=== PATIENT | male | born 1945 | race Caucasian/White ===

== ENCOUNTER → 2017-01-09 | Outpatient (CLI) | payer BC ==
[~2017-01-09] MED LIST: ASPEC325 PO; BISA10SU13 RE
--- NOTE | 2017-01-09 10:58 | DIAGNOSTIC IMAGING REPORT ---
CHEST 2 VIEWS ROUTINE CLINICAL HISTORY: EXERTIONAL DYSPNEA COMPARISON STUDY: 09/17/2015 FINDINGS: The cardiac and mediastinal contours are normal. There is no evidence of focal pulmonary consolidation. There is no evidence of failure. No pleural effusions are visualized.[ There is an old left clavicular fracture. There are old left-sided rib fractures. IMPRESSION: No active disease in the chest. Electronically signed by: Bulmaro Iqbal M.D. 01/09/2017 10:57 AM Dictated Date/Time: 01/09/2017 10:56 AM
[2017-01-09 14:01] LABS: ALT/SGPT 39 U/L (12-78); BLOOD UREA NITROGEN 12 mg/dl (7-18); BUN/CREATININE RATIO 10.6 (10-20); CALCIUM 9.1 mg/dl (8.5-10.1); CARBON DIOXIDE 27 mmol/L (21-32); CHLORIDE 102 mmol/L (98-107); CHOLESTEROL 189 mg/dl (0-200); GLUCOSE 125 mg/dl (70-99); POTASSIUM 3.9 mmol/L (3.5-5.1); SODIUM 139 mmol/L (136-145)
[2017-01-09 14:05] LABS: ALKALINE PHOSPHATASE 75 U/L (45-117); AST/SGOT 30 U/L (15-37); CHOLESTEROL/HDL RATIO 3.5; HDL CHOLESTEROL 54 mg/dl; LDL CHOLESTEROL CALCULATED 105 mg/dl; TRIGLYCERIDES 152 mg/dl (0-150); VERY LOW DENSITY LIPOPROT CALC 30 mg/dl
[2017-01-09 14:11] LABS: ESTIMATED AVERAGE GLUCOSE 146 mg/dl; HA1C FLAG Normal (Normal)
--- NOTE | 2017-01-14 12:31 | CODING QUERY MEDICAL NECESSITY ---
SUPPORTING DIAGNOSIS NEEDED A supporting diagnosis is required for the test/procedure performed on this patient in order for us to be reimbursed by the patient's insurance. Please provide a supporting diagnosis for the following test/procedure listed below next to the test name along with your signature. *If there is no additional diagnosis for this patient that would support the following test/procedure please document that below next to the test/procedure. Test(s)/Procedure(s) that require a supporting diagnosis: * VITAMIN D 25-HYDROXY DIAGNOSIS: * DOS: 01/09/17 Provider Signature: Date: Thank you Estefani Avendaño Health Information Management Once completed, please kindly fax back to [phone] For questions please call [phone]
== END | disposition home or self-care (01) ==
LOC: C.RADBC 10:24
PROVIDERS: ATTEND Internal Medicine Geriatric Medicine
DX: R35.1 Nocturia (principal); K76.0 Fatty (change of) liver, not elsewhere classified; S82.209A Unspecified fracture of shaft of unspecified tibia, initial encounter for closed fracture; X58.XXXA Exposure to other specified factors, initial encounter; R73.9 Hyperglycemia, unspecified; R06.09 Other forms of dyspnea; E55.9 Vitamin D deficiency, unspecified

== ENCOUNTER → 2017-04-08 | Outpatient (CLI) | payer BC ==
[2017-04-08 15:00] LABS: ESTIMATED AVERAGE GLUCOSE 137 mg/dl; HA1C FLAG Normal (Normal)
== END | disposition home or self-care (01) ==
LOC: C.LABBC 10:14
PROVIDERS: ATTEND Physician Assistant Medical
DX: R73.9 Hyperglycemia, unspecified (principal); E55.9 Vitamin D deficiency, unspecified

== ENCOUNTER → 2017-12-17 | Outpatient (CLI) | payer BC ==
[2017-12-17 13:35] LABS: ESTIMATED AVERAGE GLUCOSE 154 mg/dl; HA1C FLAG Normal (Normal)
== END | disposition home or self-care (01) ==
LOC: C.LABBC 10:34
DX: R73.9 Hyperglycemia, unspecified (principal)

== ENCOUNTER 2023-09-28 23:38 | Inpatient (IN) ==
[2023-09-29] MEDS ORDERED: dilTIAZem HCl 5 MG/ML 5 ML VIAL IV STA (00:01)
[2023-09-29] MEDS ORDERED: STAT IV Infusion **Titration per Protocol STA (00:01)
[2023-09-29 00:09] LABS: iSTAT Creatinine 1.4 mg/dl (0.6-1.3); iSTAT Hemoglobin 17.7 g/dl (14.0-18.0); iSTAT Ionized Calcium 1.1 mmol/l (1.12-1.32); iSTAT Potassium 4.1 mmol/L (3.3-5.0)
[2023-09-29] MEDS ORDERED: dilTIAZem HCL 125 MG in DEXTROSE 5% 100 ML IV SCH (00:15)
--- NOTE | 2023-09-29 00:15 | Emergency Department Note ---
Impression & Plan Generalized weakness, Atrial fibrillation with rapid ventricular response, Dehydration, Fall, KELLY (acute kidney injury) ED Provider Note ED Provider Note NAME: JOSSIE BRASWELL AGE:78 SEX: Male : 1945 ARRIVES VIA: EMS INFORMANT: Patient ED PROVIDER(s): Margarita Hubbard DO CHIEF COMPLAINT: Generalized weakness HPI: This is a 78-year-old male presents emerged department via EMS after they were initially called to help the patient up off the floor as he fell trying to get up off the toilet. Patient states he has been very weak with a bad cold for the last 2 to 3 days. He states he did just recently get his RSV vaccination. He states he has had a decreased appetite and did not have anything to eat earlier today but was trying to drink water. BLS initially helped the patient up and upon check of vitals realized he was tachycardic and contacted a differential repairer who also came and evaluated him. 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 Patient denies any prior history of heart problems or A-fib. No other recent change in diet, medications, or activity. No prior cardiac evaluation. Patient denies any head trauma or LOC in the fall. He states he has no concern for injury and no pain since the fall. He states no chest pain, shortness of breath, palpitations, or leg swelling. Patient states he has felt slightly lightheaded over the last several days which she attributed to being ill. He states he did take Robitussin however last dose was yesterday. EMS started IV fluids prior to arrival, no other treatment started. PAST MEDICAL HISTORY:See Below PAST SURGICAL HISTORY:See Below FAMILY HISTORY:See Below SOCIAL HISTORY:See Below HOME MEDICATIONS:See Below ALLERGIES:See Below VITALS:See Below PHYSICAL EXAMINATION: GENERAL: alert, unwell appearing, well nourished, no distress, non-toxic EYE EXAM: normal conjunctiva, PERRL and EOM's grossly intact OROPHARYNX: no exudate, no erythema, lips, buccal mucosa, and tongue normal and mucous membranes are moist NECK: supple, no nuchal rigidity, no adenopathy, non-tender LUNGS: Clear to auscultation. Normal chest wall mechanics, no w/r/r HEART: no murmurs, S1 normal and S2 normal ABDOMEN: abdomen soft, non-tender, normo-active bowel sounds, no masses, no rebound or guarding. Diastasis recti noted. BACK: Back is symmetrical on inspection and there is no deformity, no midline tenderness, no CVA tenderness. SKIN: no rashes, petechiae, orbruising UPPER EXTREMITIES: upper extremities are grossly normal. FROM, nml pulses b/l. LOWER EXTREMITIES: No pitting edema. FROM, nml pulses b/l. NEURO EXAM: Normal sensorium, cranial nerves II-XII grossly intact, normal speech, no facial droop,nogross weakness of arms, no gross weakness of legs. Gross sensation intact. No ataxia. Vital Signs: reviewed and remarkable Differential Diagnosis: Dehydration, KELLY, electrolyte abnormality, acute viral syndrome, gastroenteritis, dysrhythmia, closed head injury, ICH, as well as others were considered MEDICAL DECISION MAKING: This is a 78-year-old male presents emergency department via EMS after having weakness and a fall and was found to be in rapid A-fib. Patient afebrile and blood pressure stable on arrival. Labs drawn and sent, IV established, EKG and chest x-ray performed bedside interpreted by me and patient monitored on telemetry. Patient started on IV fluids by EMS initially and then transition to maintenance fluids here due to reported decreased oral intake after feeling ill the last few days and likely contributing dehydration. He was noted to have mild KELLY. He was started on Cardizem bolus and drip and after discussion at bedside low-dose heparin additionally, no contraindications were found in discussion with the patient. Patient's heart rate did slowly begin to improve. Lyme did reveal positive IgM and IV Rocephin was added. Case discussed with hospitalist for additional evaluation and management. Consultation(s): 0125: Discussed with Dr. Yanes, [facility] hospitalist team, for additional evaluation and management. ER Treatment Provided: See below Diagnostics Interpreted By Me: -ECG: Atrial fibrillation at 177, normal QRS and QTc, normal axis, ST depression noted V2 through V6, likely rate related -Cardiac Monitoring: An order was placed for continuous cardiac monitoring. The monitor shows a rate of 141 with a.fib rhythm. -Laboratory studies: As stated above and show below. -Imaging studies: X-ray Chest: A single view study of the chest was reviewed and was negative for cardiomegaly, focal infiltrate, effusion, overt pulmonary edema, or wide mediastinum. Mildly increased interstitial markings bilaterally Triage Nursing Note Reviewed Prior/Outside Records Reviewed Critical Care: Critical care of 43 min performed to assess and manage high likelihood of life- threatening dysrhythmia, involving labs and imaging performed with assessment to evaluate dysrhythmia diagnosis with frequent reassessment. This time includes bedside time, treatment discussions with patient/family/consultants, documentation time and excludes procedure time. Past Med/Surg History Medical History BPH with obstruction/lower urinary tract symptoms Diastasis recti Hearing deficit BL ALVAREZ Hiatal hernia History of colon polyps History of perforation of tympanic membrane Obesity Rosacea Sensorineural hearing loss (SNHL) of both ears Umbilical hernia Surgical History History of ankle surgery X 3 BL History of cataract surgery History of colonoscopy W/ POLYPECTOMY 2019 History of ear surgery History of surgical removal of ganglion cyst Family History Uncle Family hx of colon cancer Hypertension Colorectal cancer Mother Hearing loss Allergies Brother No problems noted. Uncle Heart disease Myocardial infarction H/O hemicolectomy Grandfather (Maternal) Stroke Other Cancer No family history of adverse response to anesthesia No family history of bleeding disorder Denies family history of Ovarian cancer Prostate cancer Diabetes Breast cancer Lung cancer Social History Smoking Status: Former smoker Tobacco Type: Cigarettes Age Started Using Tobacco: 18; Age Quit Using Tobacco: 31; packs per day: 1; Second Hand Exposure: No; Do You Dip or Chew Tobacco: No; Hx Alcohol Use: Yes Alcohol type: beer and wine Alcohol Intake Frequency: Monthly or Less Alcohol Intake Frequency Comment: very rare Hx Substance Use: Yes Non-Prescribed Medications: Marijuana Preferred Language: Gabonese Communication Ability: Effective Visual Impairment: Limited Hearing Ability: Use of Hearing Aid 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: No marital status: Current Living Situation: Spouse current occupational status: retired current occupation: [employer] How many Children do You have: 2 Feels Safe at Home: Yes Childhood Exposure to Second-Hand Smoke: Yes Diet: diabetic caffeine: Yes (coffee ) during the past year weight has: remained stable Dental Care, Regularly: Yes Physical Activity Frequency: Does not Exercise Seatbelt Use: always Sunscreen Use: No Assistive Devices: Glasses and Hearing Aid - Bilateral Allergies Allergies Allergy/AdvReac Type Severity Reaction Status Date / Time Nitrate Analogues Allergy Intermediate EPISTAXIS Verified 09/29/23 01:13 atorvastatin AdvReac Mild Sore tongue Verified 09/29/23 00:34 finasteride AdvReac Mild groin pain Verified 09/29/23 00:34 pravastatin AdvReac Mild Sore tongue Verified 09/29/23 00:34 tamsulosin AdvReac Mild Fatigued Verified 09/29/23 00:34 CHLOROCARBON Allergy Intermediate EYES SWELL Uncoded 09/29/23 00:34 IF INHALED Home Meds Home Medications Medication Instructions Recorded Confirmed ascorbic acid (vitamin C) 500 mg 250 mg PO BID 07/11/19 09/29/23 tablet (Vitamin C) cholecalciferol (vitamin D3) 25 1,000 unit PO DAILY 02/20/22 09/29/23 mcg (1,000 unit) tablet (Vitamin D3) aspirin 325 mg tablet 162.5 mg PO DAILY 09/01/23 09/29/23 vitamin B complex (B 1 tab PO DAILY 09/01/23 09/29/23 Complex-Vitamin B12 tablet) Previous Rx's Medication Instructions Recorded metformin 500 mg tablet 500 mg PO BID #180 tabs 01/22/23 rosuvastatin 5 mg tablet 5 mg PO HS #90 tabs 02/26/23 Results & Data (ED) Vital Signs Vital Signs - 24 hr 09/28/23 23:52 09/28/23 23:59 09/29/23 00:05 Temperature 37.5 C Temperature Source Oral Pulse Rate 175 H Pulse Rate from SpO2 Sensor Respiratory Rate 22 Respiratory Effort / Characteristics Short of Breath Respiratory Depth Normal Blood Pressure 134/108 H Blood Pressure Mean 116 Blood Pressure Position Lying Pulse Oximetry 97 96 Oxygen Delivery Method Nasal Cannula Nasal Cannula Room Air Oxygen Flow Rate 2 2 2 Sepsis Recent Fever Within 48 Hours Yes Sepsis New/Unexplained Change in Mental Status N/A Sepsis Action Taken by Nursing Physician Notified 09/29/23 00:15 09/29/23 00:30 09/29/23 00:40 Temperature Temperature Source Pulse Rate 163 H 142 H 159 H Pulse Rate from SpO2 Sensor 126 H 115 H 128 H Respiratory Rate 36 H 21 31 H Respiratory Effort / Characteristics Respiratory Depth Blood Pressure 103/74 112/85 Blood Pressure Mean 83 94 Blood Pressure Position Pulse Oximetry 95 96 95 Oxygen Delivery Method Nasal Cannula Nasal Cannula Nasal Cannula Oxygen Flow Rate 2 2 2 Sepsis Recent Fever Within 48 Hours Sepsis New/Unexplained Change in Mental Status Sepsis Action Taken by Nursing 09/29/23 00:45 09/28/23 23:51 Temperature Temperature Source Pulse Rate 122 H 162 H Pulse Rate from SpO2 Sensor 135 H Respiratory Rate 34 H Respiratory Effort / Characteristics Respiratory Depth Blood Pressure 139/80 Blood Pressure Mean 99 Blood Pressure Position Pulse Oximetry 95 Oxygen Delivery Method Nasal Cannula Oxygen Flow Rate 2 Sepsis Recent Fever Within 48 Hours Sepsis New/Unexplained Change in Mental Status Sepsis Action Taken by Nursing Laboratory Data 09/28/23 23:50 09/28/23 23:50 Lab Results 09/28/23 09/28/23 09/28/23 Range/Units 23:50 23:50 23:50 WBC 12.40 H (4.8-10.8) K/ul RBC 5.37 (4.70-6.10) M/uL Hgb 16.5 (14.0-18.0) g/dl POC Hgb (14.0-18.0) g/dl Hct 48.7 (42.0-52.0) % POC Hct (42-52) % MCV 90.7 (80.0-100.0) fL MCH 30.7 (25.0-34.0) pg MCHC 33.9 (32.0-36.0) g/dL RDW Std Deviation 41.8 (36.4-46.3) fL RDW Coeff of Wil 12.7 (11.5-14.5) % Plt Count 188 (130-400) K/uL MPV 8.8 L (9.4-12.4) fL Immature Gran % (Auto) 0.6 % Neut % (Auto) 82.1 % Lymph % (Auto) 7.8 % [place] % (Auto) 9.0 % Eos % (Auto) 0.3 % Baso % (Auto) 0.2 % Neut # (Auto) 10.17 H (1.40-6.50) K/uL Lymph # (Auto) 0.97 L (1.20-3.40) K/uL [place] # (Auto) 1.11 H (0.11-0.59) K/uL Eos # (Auto) 0.04 (0.00-0.50) K/uL Baso # (Auto) 0.03 (0.00-0.20) K/uL Immature Gran # (Auto) 0.08 (0.01-0.20) K/uL PT (9.0-12.0) Seconds INR (0.9-1.1) APTT (21.0-31.0) Seconds PTT Ratio POC Sodium (135-144) mmol/L Sodium 135 L (136-145) mmol/L POC Potassium (3.3-5.0) mmol/L Potassium 3.9 (3.5-5.1) mmol/L POC Chloride (101-112) mmol/L Chloride 100 (98-107) mmol/L Carbon Dioxide 25 (21-32) mmol/L POC Total CO2 (24-31) mmol/L Anion Gap 10 (3-11) POC Anion Gap (16-25) mmol/L POC BUN (7-18) mg/dl BUN 15 (6-23) mg/dl Creatinine 1.46 H (0.6-1.4) mg/dl POC Creatinine (0.6-1.3) mg/dl Est Cr Clr Drug Dosing 51.8 ml/min Est GFR ( Amer) 53.4 ml/min Est GFR (Non-Af Amer) 46.1 ml/min BUN/Creatinine Ratio 10.3 (10-20) Glucose 156 H (70-99(Fasting)) mg/dl POC Glucose (other) (70-99) mg/dl Calcium 9.2 (8.6-10.3) mg/dl POC Ioniz Calcium Brie (1.12-1.32) mmol/l Magnesium 2.1 (1.7-2.4) mg/dl Total Bilirubin 0.8 (0.2-1.0) mg/dl AST 54 H (13-39) U/L ALT 47 (7-52) U/L Alkaline Phosphatase 69 (34-104) U/L Troponin I High Sens 17.7 (0-20) pg/ml Total Protein 8.3 (6.0-8.3) gm/dl Albumin 4.5 (3.4-5.0) gm/dl Globulin 3.8 (2.5-4.0) gm/dl Albumin/Globulin Ratio 1.2 (0.9-2) Lipase 25 (11-82) U/L TSH 1.766 (0.300-4.500) uIu/ml Lyme Disease IgG Ab Negative (Negative) Lyme Disease IgM Ab Positive A (Negative) 09/28/23 09/28/23 Range/Units 23:50 23:57 WBC (4.8-10.8) K/ul RBC (4.70-6.10) M/uL Hgb (14.0-18.0) g/dl POC Hgb 17.7 (14.0-18.0) g/dl Hct (42.0-52.0) % POC Hct 52 (42-52) % MCV (80.0-100.0) fL MCH (25.0-34.0) pg MCHC (32.0-36.0) g/dL RDW Std Deviation (36.4-46.3) fL RDW Coeff of Wil (11.5-14.5) % Plt Count (130-400) K/uL MPV (9.4-12.4) fL Immature Gran % (Auto) % Neut % (Auto) % Lymph % (Auto) % [place] % (Auto) % Eos % (Auto) % Baso % (Auto) % Neut # (Auto) (1.40-6.50) K/uL Lymph # (Auto) (1.20-3.40) K/uL [place] # (Auto) (0.11-0.59) K/uL Eos # (Auto) (0.00-0.50) K/uL Baso # (Auto) (0.00-0.20) K/uL Immature Gran # (Auto) (0.01-0.20) K/uL PT 11.3 (9.0-12.0) Seconds INR 1.0 (0.9-1.1) APTT 25.9 (21.0-31.0) Seconds PTT Ratio 0.9 POC Sodium 138 (135-144) mmol/L Sodium (136-145) mmol/L POC Potassium 4.1 (3.3-5.0) mmol/L Potassium (3.5-5.1) mmol/L POC Chloride 100 L (101-112) mmol/L Chloride (98-107) mmol/L Carbon Dioxide (21-32) mmol/L POC Total CO2 28 (24-31) mmol/L Anion Gap (3-11) POC Anion Gap 15.0 L (16-25) mmol/L POC BUN 18 (7-18) mg/dl BUN (6-23) mg/dl Creatinine (0.6-1.4) mg/dl POC Creatinine 1.4 H (0.6-1.3) mg/dl Est Cr Clr Drug Dosing ml/min Est GFR ( Amer) ml/min Est GFR (Non-Af Amer) ml/min BUN/Creatinine Ratio (10-20) Glucose (70-99(Fasting)) mg/dl POC Glucose (other) 157 H (70-99) mg/dl Calcium (8.6-10.3) mg/dl POC Ioniz Calcium Brie 1.10 L (1.12-1.32) mmol/l Magnesium (1.7-2.4) mg/dl Total Bilirubin (0.2-1.0) mg/dl AST (13-39) U/L ALT (7-52) U/L Alkaline Phosphatase (34-104) U/L Troponin I High Sens (0-20) pg/ml Total Protein (6.0-8.3) gm/dl Albumin (3.4-5.0) gm/dl Globulin (2.5-4.0) gm/dl Albumin/Globulin Ratio (0.9-2) Lipase (11-82) U/L TSH (0.300-4.500) uIu/ml Lyme Disease IgG Ab (Negative) Lyme Disease IgM Ab (Negative) Administered Medications Sodium Chloride (Nss) 1,000 mls @ 125 mls/hr IV .Q8H NOEMI Stop: 10/28/23 23:44 Last Admin: 09/29/23 00:16 Dose: 125 mls/hr Documented By: Diltiazem HCl 125 mg/ Dextrose 125 mls @ 5 mls/hr IV .Q24H NOEMI; Protocol Stop: 10/29/23 00:14 Last Titration: 09/29/23 01:22 Dose: 10 mg/hr, 10 mls/hr Documented By: Co-signed By: ELLEN Admin: 09/29/23 00:24 Dose: 5 mg/hr, 5 mls/hr Documented By: Co-signed By: JOHANNA Ceftriaxone Sodium (Rocephin) 2,000 mg in 50 mls @ 100 mls/hr IV NOW STA Stop: 09/29/23 01:44 Last Admin: 09/29/23 01:22 Dose: 100 mls/hr Documented By: Sodium Chloride (Nss) 500 mls @ 999 mls/hr IV .Q31M ONE Stop: 09/29/23 01:47 Last Admin: 09/29/23 01:26 Dose: 999 mls/hr Documented By: Discontinued Medications Diltiazem HCl (Diltiazem Hcl 5 Mg/Ml 5 Ml Vial) 15 mg IV NOW STA Stop: 09/29/23 00:02 Last Admin: 09/29/23 00:13 Dose: 15 mg Documented By: Co-signed By: JOHANNA Miscellaneous (Stat Iv Infusion Titration Per Protocol) 1 each N/A NOW STA Stop: 09/29/23 00:02 Last Admin: 09/29/23 00:26 Dose: 1 each Documented By: Discharge Plan Visit Data Chief Complaint: Tachycardia Stated Complaint: FALL ED Provider: Margarita Hubbard Discharge Problem: Generalized weakness, Atrial fibrillation with rapid ventricular response, Dehydration, Fall, KELLY (acute kidney injury) Forms Stand Alone Forms: [facility] Prescriptions Prescriptions: No Action metformin 500 mg tablet 500 mg PO BID Qty: 180 3RF vitamin B complex [B Complex-Vitamin B12] Tablet 1 tab PO DAILY aspirin 325 mg tablet 162.5 mg PO DAILY rosuvastatin 5 mg tablet 5 mg PO HS Qty: 90 3RF ascorbic acid (vitamin C) [Vitamin C] 500 mg Tablet 250 mg PO BID cholecalciferol (vitamin D3) [Vitamin D3] 25 mcg (1,000 unit) tablet 1,000 unit PO DAILY Referrals Referrals: Jose Hernandez DO [Primary Care Provider] -
[2023-09-29] MEDS: SODIUM CHLORIDE 0.9% 1,000 ML IV SCH ×3 (00:16→20:56)
[2023-09-29 00:25] LABS: Basophils # (auto) 0.03 K/uL (0.00-0.20); Basophils % (auto) 0.2 %; Eosinophils # (auto) 0.04 K/uL (0.00-0.50); Eosinophils % (auto) 0.3 %; Hematocrit (blood only) 48.7 % (42.0-52.0); Hemoglobin 16.5 g/dl (14.0-18.0); Immature Granulocytes # (auto) 0.08 K/uL (0.01-0.20); Immature Granulocytes % (auto) 0.6 %; Lymphocytes # (auto) 0.97 K/uL (1.20-3.40); Lymphocytes % (auto) 7.8 %; Mean Corpuscular Hemoglobin 30.7 pg (25.0-34.0); Mean Corpuscular Hgb Conc 33.9 g/dL (32.0-36.0); Mean Corpuscular Volume 90.7 fL (80.0-100.0); Mean Platelet Volume 8.8 fL (9.4-12.4); Monocytes # (auto) 1.11 K/uL (0.11-0.59); Neutrophils # (auto) 10.17 K/uL (1.40-6.50); Neutrophils % (auto) 82.1 %; Platelet Count 188 K/uL (130-400); RDW Coefficient of Variation 12.7 % (11.5-14.5); RDW Standard Deviation 41.8 fL (36.4-46.3); Red Blood Count 5.37 M/uL (4.70-6.10)
[2023-09-29 00:35] LABS: Albumin Globulin Ratio 1.2 (0.9-2); Albumin Level 4.5 gm/dl (3.4-5.0); BUN Creatinine Ratio 10.3 (10-20); Bilirubin,Total 0.8 mg/dl (0.2-1.0); Calcium 9.2 mg/dl (8.6-10.3); Creatinine Clr Calc Pharmacy 51.8 ml/min; Est GFR (African American) 53.4 ml/min; Est GFR (Non-African American) 46.1 ml/min; Globulin 3.8 gm/dl (2.5-4.0); Magnesium 2.1 mg/dl (1.7-2.4); Potassium 3.9 mmol/L (3.5-5.1); Total Protein 8.3 gm/dl (6.0-8.3)
[2023-09-29 00:42] LABS: Troponin I High Sensitivity 17.7 pg/ml (0-20)
[2023-09-29] MEDS ORDERED: Heparin IV Adult Wt-Based Low-Dose *NO* Bolus Protocol IV STA (00:42)
[2023-09-29 00:51] LABS: Thyroid Stimulating Hormone 1.766 uIu/ml (0.300-4.500)
[2023-09-29] MEDS ORDERED: HEPARIN SODIUM/DEXTROSE 25,000 UNITS/500 ML BAG IV SCH (01:00)
[2023-09-29 01:01] LABS: Lyme Ab IgG w/WB Rflx Negative (Negative)
[2023-09-29 01:14] LABS: Lyme Ab IgM w/WB Rflx Positive (Negative)
[2023-09-29] MEDS ORDERED: cefTRIAXone SODIUM 2,000 MG/50 ML BAG IV STA (01:15)
[2023-09-29] MEDS ORDERED: SODIUM CHLORIDE 0.9% 500 ML IV ONE (01:17)
[2023-09-29 01:28] LABS: Partial Thromboplastin Ratio 0.9; Partial Thromboplastin Time 25.9 Seconds (21.0-31.0); Prothrombin Time 11.3 Seconds (9.0-12.0)
[2023-09-29 01:51] LABS: Adenovirus PCR Not Detected (NotDetected); Bordetella parapertussis PCR Not Detected (NotDetected); Bordetella pertussis PCR Not Detected (NotDetected); Chlamydia pneumoniae PCR Not Detected (NotDetected); Coronavirus 229E PCR Not Detected (NotDetected); Coronavirus HKU1 PCR Not Detected (NotDetected); Coronavirus NL63 PCR Not Detected (NotDetected); Coronavirus OC43PCR Not Detected (NotDetected); Human Metapneumovirus PCR Not Detected (NotDetected); Influenza A PCR Not Detected (NotDetected); Influenza B PCR Not Detected (NotDetected); Mycoplasma pneumoniae PCR Not Detected (NotDetected); Parainfluenza Virus 1 PCR Not Detected (NotDetected); Parainfluenza Virus 2 PCR Not Detected (NotDetected); Parainfluenza Virus 3 PCR Not Detected (NotDetected); Parainfluenza Virus 4 PCR Not Detected (NotDetected); Respiratory Syncytial VirusPCR Not Detected (NotDetected); Rhinovirus/Enterovirus PCR Not Detected (NotDetected)
[2023-09-29 01:58] LABS: Coronavirus CoV-2 (COVID19)PCR DETECTED (NotDetected)
[2023-09-29] MEDS ORDERED: POTASSIUM CHLORIDE CRTAB 20 MEQ TABCR PO ONE (02:00)
[2023-09-29] MEDS ORDERED: ENOXAPARIN 100 MG/1ML SYR SQ ONE (02:00)
[2023-09-29] MEDS: DOXYCYCLINE HYCLATE 100 MG in DEXTROSE 5% MINI-B 100 ML IV SCH ×2 (02:02→14:07)
[2023-09-29 02:48] LABS: Appearance Urine Clear (Clear); Bacteria Urine Automated Negative (Negative); Bilirubin Urine Negative (Negative); Blood Urine 2+ (Negative); Color Urine Dark Yellow; Glucose Urine UA Negative (Negative); Ketones Urine 1+ (Negative); Leukocyte Esterase Urine Negative (Negative); Nitrite Urine Negative (Negative); Protein Urine 1+ (Negative); Specific Gravity Urine 1.021 (1.000-1.030); Urobilinogen Urine Negative (Negative)
[2023-09-29] MEDS ORDERED: DEXTROSE 50% 50 ML SYRINGE IV PRN (03:21)
[2023-09-29] MEDS ORDERED: GLUCOSE 40% GEL 15 GM TUBE PO PRN (03:21)
[2023-09-29] MEDS ORDERED: GLUCAGON FOR INJ 1 MG VIAL SQ PRN (03:21)
[2023-09-29] MEDS ORDERED: ONDANSETRON INJ 2 MG/ML 2 ML VIAL IV PRN (03:21)
[2023-09-29] MEDS ORDERED: GLUCOSE 10 TAB/TUBE PO PRN (03:21)
[2023-09-29] MEDS ORDERED: CARBOHYDRATES FOR HYPOGLYCEMIA PO PRN (03:21)
[2023-09-29 04:45] LABS: Basophils # (auto) 0.03 K/uL (0.00-0.20); Basophils % (auto) 0.3 %; Hematocrit (blood only) 45.6 % (42.0-52.0); Hemoglobin 15.7 g/dl (14.0-18.0); Immature Granulocytes # (auto) 0.05 K/uL (0.01-0.20); Immature Granulocytes % (auto) 0.5 %; Lymphocytes # (auto) 0.76 K/uL (1.20-3.40); Lymphocytes % (auto) 7.1 %; Mean Corpuscular Hemoglobin 30.6 pg (25.0-34.0); Mean Corpuscular Hgb Conc 34.4 g/dL (32.0-36.0); Mean Corpuscular Volume 88.9 fL (80.0-100.0); Mean Platelet Volume 8.8 fL (9.4-12.4); Monocytes % (auto) 10.3 %; Neutrophils # (auto) 8.79 K/uL (1.40-6.50); Neutrophils % (auto) 81.8 %; Platelet Count 192 K/uL (130-400); RDW Coefficient of Variation 12.6 % (11.5-14.5); RDW Standard Deviation 41.1 fL (36.4-46.3); Red Blood Count 5.13 M/uL (4.70-6.10); White Blood Count 10.73 K/ul (4.8-10.8)
[2023-09-29 04:52] LABS: Albumin Globulin Ratio 1.2 (0.9-2); Albumin Level 4.1 gm/dl (3.4-5.0); BUN Creatinine Ratio 14.3 (10-20); Bilirubin,Total 0.5 mg/dl (0.2-1.0); Calcium 8.6 mg/dl (8.6-10.3); Creatinine Clr Calc Pharmacy 67.5 ml/min; Est GFR (African American) 73.6 ml/min; Est GFR (Non-African American) 63.5 ml/min; Globulin 3.4 gm/dl (2.5-4.0); Potassium 3.4 mmol/L (3.5-5.1); Total Protein 7.5 gm/dl (6.0-8.3)
[2023-09-29] MEDS ORDERED: POTASSIUM CHLORIDE CRTAB 20 MEQ TABCR PO STA (05:21)
[2023-09-29] MEDS ORDERED: dexAMETHasone 6 MG in SYRINGE 0 ML IV SCH (05:30)
--- NOTE | 2023-09-29 05:33 | History & Physical Report ---
Date of Service September 29, 2023 Assessment & Plan (1) COVID-19 virus infection: (2) Lyme disease: (3) KELLY (acute kidney injury): (4) Atrial fibrillation with rapid ventricular response: (5) Generalized weakness: (6) Type 2 diabetes mellitus with obesity: (7) BPH with obstruction/lower urinary tract symptoms: (8) Fall: (9) Dehydration: Plan Atrial fibrillation with RVR- The patient will be admitted to telemetry for serial cardiac enzymes, serial EKG's, cardiac rhythm monitoring and a 2-D echocardiogram with Dopplers. Lovenox 1 mg/kg subcu x1 this evening, with plan to convert to DOAC in the a.m. Patient received diltiazem 15 mg IV, then started on diltiazem drip, and which was titrated from 5 to 10 mg/h If not improved on cardizem gtt, will trial digoxin due to borderline bp, and then lopressor IV if needed Possible etiologies include but not limited to: Lyme disease, COVID-19 infection, unknown genetic predisposition, dehydration Continue aspirin Consult cardiology Lyme disease- IgM positive, IgG negative, with Western blot pending Given ceftriaxone 2 g IV by the ED Added doxycycline 100 mg IV every 12 hours Added full tick panel, with anaplasmosis and babesiosis peripheral smear negative, and antibodies pending COVID-19- Unclear if his fatigue and weakness are secondary to COVID-19, Lyme disease or both, or neither Start on dexamethasone 6 mg IV daily to address potential weakness and fatigue issue. Patient does not appear to have a pulmonary issue at this time BioFire negative except for COVID-19 Acute kidney injury- Creatinine 1.46 on admission with base 0.95 IV fluids as noted, recheck laboratories with repeat creatinine 1.12 NSS at 500 mils per hour, and then 125 mL/h Admission and Anticipated Discharge Date Admission Date: September 29, 2023 History of Present Illness Chief Complaint: The patient presents to the emergency department with complaint of 2 to 3 days of cold-like symptoms, reporting weekly over the past 3 weeks he received COVID booster, flu vaccine and then RSV vaccine. He had a decreased oral intake for about liquids and solids over the past 2 days. He reports that when he went to the bathroom, he ended up on the floor, was not able to get up and urinated himself on the floor, because he could not hold anymore, and then was helped up by EMS when they arrived. As he was helped up by EMS, they realized that his heart rate was fast and irregular, will concerned about new onset atrial fibrillation, as he had not had this before, and they brought him to the ED for assessment. The patient denies any loss of consciousness or hitting his head during the fall. Significant laboratories: WBC 12.40, hemoglobin 16.5, hematocrit 48.7, glucose 156, creatinine 1.46, AST 54, Lyme positive, COVID-19 positive for Primary Care Provider: Jose Hernandez DO The patient is a 78-year-old male with a past medical history including diabetes mellitus, obesity, BPH with LUTS, hyperlipidemia, fatty liver and vitamin D deficiency. The patient presents to the emergency department as noted above in chief complaint Allergies Allergy/AdvReac Type Severity Reaction Status Date / Time Nitrate Analogues Allergy Intermediate EPISTAXIS Verified 09/29/23 01:13 atorvastatin AdvReac Mild Sore tongue Verified 09/29/23 00:34 finasteride AdvReac Mild groin pain Verified 09/29/23 00:34 pravastatin AdvReac Mild Sore tongue Verified 09/29/23 00:34 tamsulosin AdvReac Mild Fatigued Verified 09/29/23 00:34 CHLOROCARBON Allergy Intermediate EYES SWELL Uncoded 09/29/23 00:34 IF INHALED Home Medications Medication Instructions Recorded Confirmed Type ascorbic acid (vitamin C) 500 mg 250 mg PO BID 07/11/19 09/29/23 History tablet (Vitamin C) cholecalciferol (vitamin D3) 25 1,000 unit PO DAILY 02/20/22 09/29/23 History mcg (1,000 unit) tablet (Vitamin D3) metformin 500 mg tablet 500 mg PO BID #180 tabs 01/22/23 09/29/23 Rx rosuvastatin 5 mg tablet 5 mg PO HS #90 tabs 02/26/23 09/29/23 Rx aspirin 325 mg tablet 162.5 mg PO DAILY 09/01/23 09/29/23 History vitamin B complex (B 1 tab PO DAILY 09/01/23 09/29/23 History Complex-Vitamin B12 tablet) Past Med/Surg History Medical History BPH with obstruction/lower urinary tract symptoms Diastasis recti Hearing deficit BL ALVAREZ Hiatal hernia History of colon polyps History of perforation of tympanic membrane Obesity Rosacea Sensorineural hearing loss (SNHL) of both ears Umbilical hernia Surgical History History of ankle surgery X 3 BL History of cataract surgery History of colonoscopy W/ POLYPECTOMY 2019 History of ear surgery History of surgical removal of ganglion cyst Family History Uncle Family hx of colon cancer Hypertension Colorectal cancer Mother Hearing loss Allergies Brother No problems noted. Uncle Heart disease Myocardial infarction H/O hemicolectomy Grandfather (Maternal) Stroke Other Cancer No family history of adverse response to anesthesia No family history of bleeding disorder Denies family history of Ovarian cancer Prostate cancer Diabetes Breast cancer Lung cancer Social History Smoking Status: Former smoker Tobacco Type: Cigarettes Age Started Using Tobacco: 18; Age Quit Using Tobacco: 31; packs per day: 1; Second Hand Exposure: No; Do You Dip or Chew Tobacco: No; Hx Alcohol Use: Yes Alcohol type: beer and wine Alcohol Intake Frequency: Monthly or Less Alcohol Intake Frequency Comment: very rare Hx Substance Use: Yes Non-Prescribed Medications: Marijuana Preferred Language: Tajik Communication Ability: Effective Visual Impairment: Limited Hearing Ability: Use of Hearing Aid 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 Required: No marital status: Current Living Situation: Spouse current occupational status: retired current occupation: [employer] How many Children do You have: 2 Feels Safe at Home: Yes Childhood Exposure to Second-Hand Smoke: Yes Diet: diabetic caffeine: Yes (coffee ) during the past year weight has: remained stable Dental Care, Regularly: Yes Physical Activity Frequency: Does not Exercise Seatbelt Use: always Sunscreen Use: No Assistive Devices: Glasses and Hearing Aid - Bilateral Review of Systems Review of Systems: The patient denies chest pain, palpitations, cough, lower extremity swelling, sore throat, fevers, chills, sweats, nausea, vomiting, diarrhea , constipation, abdominal pain, pelvic pain, blood in urine or stool, dysuria, urinary frequency or urgency, lightheadedness, dizziness, headache, memory loss, loss of consciousness, rash, abnormal bruising or bleeding, focal or generalized weakness, numbness or tingling in arms or legs, generalized arthralgias or myalgias, back or neck pain, or night sweats. The review of systems is otherwise negative other than for that already noted above, and at least 10 systems have been reviewed. Physical Exam Physical Exam: The patient is awake, alert and oriented 3, intermittently lethargic, well developed and well nourished, normocephalic and atraumatic, lying in bed and in no acute distress. HEENT--PERRL, EOMI, mucous membranes and oropharynx dry. Neck--supple. No JVD. No bruits. Thyroid normal, trachea midline, no adenopathy. Heart--normal S1 and S2. No murmurs, rubs or gallops. Lungs--clear bilaterally, no respiratory distress, no accessory muscle use. Abdomen--normal bowel sounds and soft. Nontender. Nondistended, no hernias or masses, no organomegaly. Extremities--no cyanosis or clubbing. No edema. Dermatologic--normal skin turgor, normal color, no abnormal lymph nodes, no rash. Neurologic--cranial nerves II through XII grossly intact. Rheumatologic--normal range of motion. Psychiatric--normal affect. Results & Data Results & Data Vital Signs (Past 12 Hours) Vital Signs Temp Pulse Resp BP Pulse Ox O2 Del Method O2 Flow Rate 09/29/23 02:30 144 H 129/99 93 Room Air 09/29/23 02:00 162 H 34 H 168/93 H 97 Nasal Cannula 2 09/29/23 01:31 129 H 24 136/78 96 Nasal Cannula 2 09/28/23 23:51 162 H 09/29/23 00:45 122 H 34 H 139/80 95 Nasal Cannula 2 09/29/23 00:40 159 H 31 H 95 Nasal Cannula 2 09/29/23 00:30 142 H 21 112/85 96 Nasal Cannula 2 09/29/23 00:15 163 H 36 H 103/74 95 Nasal Cannula 2 09/29/23 00:05 96 Room Air 2 09/28/23 23:59 Nasal Cannula 2 09/28/23 23:52 37.5 C 175 H 22 134/108 H 97 Nasal Cannula 2 Laboratory Results Laboratory Results WBC 10.73 K/ul (4.8-10.8) 09/29/23 04:08 RBC 5.13 M/uL (4.70-6.10) 09/29/23 04:08 Hgb 15.7 g/dl (14.0-18.0) 09/29/23 04:08 POC Hgb 17.7 g/dl (14.0-18.0) 09/28/23 23:57 Hct 45.6 % (42.0-52.0) 09/29/23 04:08 POC Hct 52 % (42-52) 09/28/23 23:57 MCV 88.9 fL (80.0-100.0) 09/29/23 04:08 MCH 30.6 pg (25.0-34.0) 09/29/23 04:08 MCHC 34.4 g/dL (32.0-36.0) 09/29/23 04:08 RDW Std Deviation 41.1 fL (36.4-46.3) 09/29/23 04:08 RDW Coeff of Wil 12.6 % (11.5-14.5) 09/29/23 04:08 Plt Count 192 K/uL (130-400) 09/29/23 04:08 MPV 8.8 fL (9.4-12.4) L 09/29/23 04:08 Immature Gran % (Auto) 0.5 % 09/29/23 04:08 Neut % (Auto) 81.8 % 09/29/23 04:08 Lymph % (Auto) 7.1 % 09/29/23 04:08 [place] % (Auto) 10.3 % 09/29/23 04:08 Eos % (Auto) 0.0 % 09/29/23 04:08 Baso % (Auto) 0.3 % 09/29/23 04:08 Neut # (Auto) 8.79 K/uL (1.40-6.50) H 09/29/23 04:08 Lymph # (Auto) 0.76 K/uL (1.20-3.40) L 09/29/23 04:08 [place] # (Auto) 1.10 K/uL (0.11-0.59) H 09/29/23 04:08 Eos # (Auto) 0.00 K/uL (0.00-0.50) 09/29/23 04:08 Baso # (Auto) 0.03 K/uL (0.00-0.20) 09/29/23 04:08 Immature Gran # (Auto) 0.05 K/uL (0.01-0.20) 09/29/23 04:08 PT 11.3 Seconds (9.0-12.0) 09/28/23 23:50 INR 1.0 (0.9-1.1) 09/28/23 23:50 APTT 25.9 Seconds (21.0-31.0) 09/28/23 23:50 PTT Ratio 0.9 09/28/23 23:50 POC Sodium 138 mmol/L (135-144) 09/28/23 23:57 Sodium 137 mmol/L (136-145) 09/29/23 04:08 POC Potassium 4.1 mmol/L (3.3-5.0) 09/28/23 23:57 Potassium 3.4 mmol/L (3.5-5.1) L 09/29/23 04:08 POC Chloride 100 mmol/L (101-112) L 09/28/23 23:57 Chloride 103 mmol/L (98-107) 09/29/23 04:08 Carbon Dioxide 24 mmol/L (21-32) 09/29/23 04:08 POC Total CO2 28 mmol/L (24-31) 09/28/23 23:57 Anion Gap 10 (3-11) 09/29/23 04:08 POC Anion Gap 15.0 mmol/L (16-25) L 09/28/23 23:57 POC BUN 18 mg/dl (7-18) 09/28/23 23:57 BUN 16 mg/dl (6-23) 09/29/23 04:08 Creatinine 1.12 mg/dl (0.6-1.4) D 09/29/23 04:08 POC Creatinine 1.4 mg/dl (0.6-1.3) H 09/28/23 23:57 Est Cr Clr Drug Dosing 67.5 ml/min 09/29/23 04:08 Est GFR ( Amer) 73.6 ml/min 09/29/23 04:08 Est GFR (Non-Af Amer) 63.5 ml/min 09/29/23 04:08 BUN/Creatinine Ratio 14.3 (10-20) 09/29/23 04:08 Glucose 173 mg/dl (70-99(Fasting)) H 09/29/23 04:08 POC Glucose (other) 157 mg/dl (70-99) H 09/28/23 23:57 Calcium 8.6 mg/dl (8.6-10.3) 09/29/23 04:08 POC Ioniz Calcium [place] 1.10 mmol/l (1.12-1.32) L 09/28/23 23:57 Magnesium 2.0 mg/dl (1.7-2.4) 09/29/23 04:08 Total Bilirubin 0.5 mg/dl (0.2-1.0) 09/29/23 04:08 AST 52 U/L (13-39) H 09/29/23 04:08 ALT 45 U/L (7-52) 09/29/23 04:08 Alkaline Phosphatase 60 U/L (34-104) 09/29/23 04:08 Troponin I High Sens 17.7 pg/ml (0-20) 09/28/23 23:50 Total Protein 7.5 gm/dl (6.0-8.3) 09/29/23 04:08 Albumin 4.1 gm/dl (3.4-5.0) 09/29/23 04:08 Globulin 3.4 gm/dl (2.5-4.0) 09/29/23 04:08 Albumin/Globulin Ratio 1.2 (0.9-2) 09/29/23 04:08 Lipase 25 U/L (11-82) 09/28/23 23:50 TSH 1.766 uIu/ml (0.300-4.500) 09/28/23 23:50 Urine Color Dark Yellow 09/29/23 02:27 Urine Appearance Clear (Clear) 09/29/23 02:27 Urine pH 5.0 (4.5-7.5) 09/29/23 02:27 Ur Specific [place] 1.021 (1.000-1.030) 09/29/23 02:27 Urine Protein 1+ (Negative) H 09/29/23 02:27 Urine Glucose (UA) Negative (Negative) 09/29/23 02:27 Urine Ketones 1+ (Negative) H 09/29/23 02:27 Urine Blood 2+ (Negative) H 09/29/23 02:27 Urine Nitrite Negative (Negative) 09/29/23 02:27 Urine Bilirubin Negative (Negative) 09/29/23 02:27 Urine Urobilinogen Negative (Negative) 09/29/23 02:27 Ur Leukocyte Esterase Negative (Negative) 09/29/23 02:27 Urine WBC (Auto) 1-5 /hpf (0-5) 09/29/23 02:27 Urine RBC (Auto) 10-30 /hpf (0-4) H 09/29/23 02:27 U Hyaline Cast (Auto) 10-30 /lpf (0-5) H 09/29/23 02:27 U Epithel Cells (Auto) 10-20 /lpf (0-5) H 09/29/23 02:27 Urine Bacteria (Auto) Negative (Negative) 09/29/23 02:27 Adenovirus (PCR) Not Detected (NotDetected) 09/29/23 00:44 Anaplasma Smear See Comment 09/28/23 23:50 Babesia Smear See Comment 09/28/23 23:50 B. pertussis DNA (PCR) Not Detected (NotDetected) 09/29/23 00:44 B.parapertussis DNA PCR Not Detected (NotDetected) 09/29/23 00:44 Lyme Disease IgG Ab Negative (Negative) 09/28/23 23:50 Lyme Disease IgM Ab Positive (Negative) A 09/28/23 23:50 C. pneumoniae DNA (PCR) Not Detected (NotDetected) 09/29/23 00:44 Coronavirus OC43 (PCR) Not Detected (NotDetected) 09/29/23 00:44 Coronavirus HKU1 (PCR) Not Detected (NotDetected) 09/29/23 00:44 Coronavirus 229E (PCR) Not Detected (NotDetected) 09/29/23 00:44 SARS-CoV-2 (PCR) DETECTED (NotDetected) A* 09/29/23 00:44 Coronavirus NL63 (PCR) Not Detected (NotDetected) 09/29/23 00:44 Human Metapneumovir PCR Not Detected (NotDetected) 09/29/23 00:44 Influenza Type A (PCR) Not Detected (NotDetected) 09/29/23 00:44 Influenza Type B (PCR) Not Detected (NotDetected) 09/29/23 00:44 M. pneumoniae (PCR) Not Detected (NotDetected) 09/29/23 00:44 Parainfluenza 1 (PCR) Not Detected (NotDetected) 09/29/23 00:44 Parainfluenza 2 (PCR) Not Detected (NotDetected) 09/29/23 00:44 Parainfluenza 3 (PCR) Not Detected (NotDetected) 09/29/23 00:44 Parainfluenza 4 (PCR) Not Detected (NotDetected) 09/29/23 00:44 RSV (PCR) Not Detected (NotDetected) 09/29/23 00:44 Entero/Rhino (PCR) Not Detected (NotDetected) 09/29/23 00:44 Code Status & VTE Plan Code Status Full code VTE Prophylaxis Plan VTE Prophylaxis will be ordered: Yes PG Care Time/CCT Total # of Minutes Spent Total Time Spent with Patient: Total time spent is greater than 50% in coordination of care (as documented) at patient's floor/unit and/or counseling patient: Coding Level of Care Code 54941 INT INP/OBS CARE 3/75MIN Diagnoses COVID-19 virus infection U07.1 Lyme disease A69.20 KELLY (acute kidney injury) N17.9 Atrial fibrillation with rapid ventricular response I48.91 Generalized weakness R53.1 Type 2 diabetes mellitus with obesity E11.69; E66.9 BPH with obstruction/lower urinary tract symptoms N40.1; N13.8 Fall W19.XXXA Dehydration E86.0
[2023-09-29] MEDS: ACETAMINOPHEN 325 MG TAB PO PRN ×2 (05:39→22:39)
[2023-09-29] MEDS ORDERED: DIGOXIN 250 MCG in SYRINGE 9 ML IV ONE (05:45)
[2023-09-29] MEDS ORDERED: NSS + 20MEQ KCL 20 MEQ/1,000 ML BAG IV SCH (06:00)
[2023-09-29 07:08] LABS: Estimated Average Glucose 137 mg/dl; Hemoglobin A1C 6.4 % (4.5-5.6)
--- NOTE | 2023-09-29 07:15 | XRay Report ---
XR chest 1V portable CLINICAL HISTORY: sob TECHNIQUE: Single frontal radiograph of the chest was obtained. Comparison: Comparison is made to chest radiograph 09/17/2015 FINDINGS: No lines and tubes are seen. The cardiomediastinal silhouette is normal. Faint bibasilar airspace opa cities are seen. No evidence of pleural effusion or pneumothorax. IMPRESSION: Faint bibasilar airspace opacities which may represent atelectasis, pneumonia, and/or aspiration. ACT 112: Negative or not required by law. Electronically signed by: John Mullen M.D. 09/29/2023 7:14 AM
--- NOTE | 2023-09-29 08:03 | Electrocardiogram Report ---
Test Reason : Blood Pressure : / mmHG Vent. Rate : 177 BPM Atrial Rate : 000 BPM P-R Int : 000 ms QRS Dur : 090 ms QT Int : 238 ms P-R-T Axes : 000 059 -09 degrees QTc Int : 408 ms Atrial fibrillation with rapid ventricular response Marked ST abnormality, possible inferior subendocardial injury Abnormal ECG When compared with ECG of 07-NOV-2019 11:20, Atrial fibrillation has replaced Sinus rhythm Vent. rate has increased BY [address] now depressed in Inferior leads ST now depressed in Anterolateral leads T wave inversion now evident in Inferior leads Confirmed by Hipolito Walker ([id number] on 09/29/2023 8:03:23 AM Referred By: REFERRED SELF Confirmed By:Juan Carlos Walker
--- NOTE | 2023-09-29 08:16 | XCELERA ---
[id number]
[2023-09-29] MEDS ORDERED: dilTIAZem HCl 5 MG/ML 5 ML VIAL IV ONE (08:28)
[2023-09-29] MEDS: CHOLECALCIFEROL 1,000 UNITS 25 MCG TAB PO SCH (08:31)
[2023-09-29] MEDS: ASCORBIC ACID 500 MG TAB PO SCH ×2 (08:31→20:56)
[2023-09-29] MEDS: VITAMIN B COMPLEX TAB PO SCH (08:31)
[2023-09-29] MEDS: ASPIRIN 81 MG ECTAB PO SCH (08:32)
[2023-09-29] MEDS: INSULIN ASPART PER UNIT CHARGE SC SCH ×4 (08:40→21:08)
[2023-09-29] MEDS ORDERED: ASPIRIN 325 MG ECTAB PO SCH (09:00)
--- NOTE | 2023-09-29 09:35 | Cardiology Consultation ---
Date of Consultation September 29, 2023 Assessment & Plan (1) Atrial fibrillation with rapid ventricular response: Plan 1. Atrial fibrillation: His initial rhythm appeared to be atrial fibrillation with rapid ventricular response. Currently telemetry is more consistent with an atrial flutter. This may complicate efforts at rate control. The duration of his arrhythmia is also in question. Unfortunately, he has no symptoms of palpitations and does not measure his heart rate at home routinely. I suspect this started fairly recently, but we cannot guarantee this started within the last 48 hours. This complicates attempts at cardioversion given the unknown duration of the arrhythmia. The likely etiology of the arrhythmia is his age, obesity and possibly viral illness. He did not endorse any history of obstructive sleep apnea and is not being treated for hypertension. No history of significant or recent alcohol use. I would agree with attempts at rate control. Hopefully treatment of his viral illness and time will also affect some improvement in the rate and possibly result in conversion. This is especially likely if this is his 1st episode of atrial fibrillation. He is on diltiazem infusion and did receive 1 dose of digoxin. We can always add beta-blockade if rate control is in adequate. I would also favor early cardioversion for poorly controlled rates. Unfortunately, given the unknown duration of the arrhythmia this would also necessitate transesophageal echocardiogram. He has risk factors for stroke and should be anticoagulated. He did receive a dose of Lovenox he can be started on either Eliquis 5 mg twice daily or Xarelto 20 mg daily. History of Present Illness Attending Physician: Narciso Yanes MD History of Present Illness The patient is a 78-year-old gentleman without a known history of cardiac disease who presented to the hospital with symptoms of weakness. For couple of days the patient has not felt well. He had some symptoms upper respiratory illness, subjective fevers and weakness. He denies significant breathing difficulty or coughing. He did report some episodes of dizziness however essentially when changing positions. He did not endorse symptoms of chest pain or rapid heartbeat. No symptoms of palpitation. Last evening he went to the bathroom and became very weak. He fell to the ground and could not get up due to weakness. He had some element of dizziness but did not appear to have lost consciousness. Landed on his right side. EMS was summoned and he was brought to the hospital. He was discovered to have an elevated an irregular heart rate. His rhythm was atrial fibrillation. He also tested positive for COVID-19 and Lyme IgM. Generally the patient is able to perform yd work. He does not do regular exercise but did not report any specific symptoms or limitations associated with doing work around his residence. He specifically denies limiting dyspnea or any symptoms of chest pain. Normally he does not have dizziness or lightheadedness. He does not notice rapid heartbeats or irregularity in his heartbeat. He does not have any devices at home which monitor his heart rate. At the time of the interview the patient was resting comfortably. He reports some fatigue but no breathing difficulty or dizziness. No sense of palpitation. Allergies Allergy/AdvReac Type Severity Reaction Status Date / Time Nitrate Analogues Allergy Intermediate EPISTAXIS Verified 09/29/23 01:13 atorvastatin AdvReac Mild Sore tongue Verified 09/29/23 00:34 finasteride AdvReac Mild groin pain Verified 09/29/23 00:34 pravastatin AdvReac Mild Sore tongue Verified 09/29/23 00:34 tamsulosin AdvReac Mild Fatigued Verified 09/29/23 00:34 CHLOROCARBON Allergy Intermediate EYES SWELL Uncoded 09/29/23 00:34 IF INHALED Home Medications Medication Instructions Recorded Confirmed Type ascorbic acid (vitamin C) 500 mg 250 mg PO BID 07/11/19 09/29/23 History tablet (Vitamin C) cholecalciferol (vitamin D3) 25 1,000 unit PO DAILY 02/20/22 09/29/23 History mcg (1,000 unit) tablet (Vitamin D3) metformin 500 mg tablet 500 mg PO BID #180 tabs 01/22/23 09/29/23 Rx rosuvastatin 5 mg tablet 5 mg PO HS #90 tabs 02/26/23 09/29/23 Rx aspirin 325 mg tablet 162.5 mg PO DAILY 09/01/23 09/29/23 History vitamin B complex (B 1 tab PO DAILY 09/01/23 09/29/23 History Complex-Vitamin B12 tablet) Patient History Medical History BPH with obstruction/lower urinary tract symptoms Diastasis recti Hearing deficit BL ALVAREZ Hiatal hernia History of colon polyps History of perforation of tympanic membrane Obesity Rosacea Sensorineural hearing loss (SNHL) of both ears Umbilical hernia Surgical History History of ankle surgery X 3 BL History of cataract surgery History of colonoscopy W/ POLYPECTOMY 2019 History of ear surgery History of surgical removal of ganglion cyst Family History Uncle Family hx of colon cancer Hypertension Colorectal cancer Mother Hearing loss Allergies Brother No problems noted. Uncle Heart disease Myocardial infarction H/O hemicolectomy Grandfather (Maternal) Stroke Other Cancer No family history of adverse response to anesthesia No family history of bleeding disorder Denies family history of Ovarian cancer Prostate cancer Diabetes Breast cancer Lung cancer Social History Smoking Status: Former smoker Tobacco Type: Cigarettes Age Started Using Tobacco: 18; Age Quit Using Tobacco: 31; packs per day: 1; Second Hand Exposure: No; Do You Dip or Chew Tobacco: No; Hx Alcohol Use: No Hx Substance Use: No Preferred Language: Polish Communication Ability: Effective Visual Impairment: Limited Hearing Ability: Use of Hearing Aid Mechanical Integrity Specialist Required: No Beliefs That Will Affect Care: None marital status: Current Living Situation: Spouse current occupational status: retired current occupation: [employer] How many Children do You have: 2 Other Information That Helps Us Care for You: No Feels Safe at Home: Yes Safety Concerns: Feels Safe At This Time Childhood Exposure to Second-Hand Smoke: Yes Diet: diabetic caffeine: Yes (coffee ) during the past year weight has: remained stable Dental Care, Regularly: Yes Physical Activity Frequency: Does not Exercise Seatbelt Use: always Sunscreen Use: No Assistive Devices: Glasses and Hearing Aid - Bilateral Review of Systems Review of Systems: Per HPI. Physical Exam Physical Exam: The patient is alert and oriented. Mood and affect appeared normal. He answered all questions appropriately. Mildly hard of hearing. Obese HEENT: Pupils are equal and reactive to light and accommodation. Extraocular movements are intact. The sclerae are anicteric. Neuro: Cranial nerves intact Lungs: Clear to auscultation bilaterally. He has good air movement without use of accessory muscles. No rales wheezes or rhonchi. Cardiac: Heart demonstrates an irregular rhythm and rapid rate. Normal S1 and S2. No murmurs on examination. Pulses: The patient has palpable radial pulses bilaterally that are equal in intensity Extremities: There was no evidence of hypoperfusion. There is no cyanosis or clubbing. There is no edema. Skin: I did not appreciate any rashes on examination today. Results & Data Vital Signs (Past 12 Hours) Vital Signs Temp Pulse Pulse Resp BP BP Pulse Ox 09/29/23 08:22 156 H 16 142/80 H 95 09/29/23 08:00 155 H 25 H 91 09/29/23 08:00 142/80 H 09/29/23 07:30 157 H 31 H 91 09/29/23 07:30 116/96 09/29/23 07:00 160 H 22 92 09/29/23 07:00 111/73 09/29/23 07:01 158 H 09/29/23 06:31 152 H 22 126/100 93 09/29/23 06:10 139 H 09/29/23 05:30 120 H 27 H 93 09/29/23 05:30 120/76 09/29/23 05:00 132 H 21 92 09/29/23 05:00 121/85 09/29/23 04:00 127 H 31 H 93 09/29/23 04:00 129/81 09/29/23 05:41 09/29/23 05:41 112 H 24 120/76 92 09/29/23 02:30 144 H 129/99 93 09/29/23 02:00 162 H 34 H 168/93 H 97 09/29/23 01:31 129 H 24 136/78 96 09/28/23 23:51 162 H 09/29/23 00:45 122 H 34 H 139/80 95 09/29/23 00:40 159 H 31 H 95 09/29/23 00:30 142 H 21 112/85 96 09/29/23 00:15 163 H 36 H 103/74 95 09/29/23 00:05 96 09/28/23 23:59 09/28/23 23:52 37.5 C 175 H 22 134/108 H 97 O2 Del Method O2 Flow Rate 09/29/23 08:22 Room Air 09/29/23 08:00 09/29/23 08:00 09/29/23 07:30 09/29/23 07:30 09/29/23 07:00 09/29/23 07:00 09/29/23 07:01 09/29/23 06:31 Room Air 09/29/23 06:10 09/29/23 05:30 Room Air 09/29/23 05:30 09/29/23 05:00 Room Air 09/29/23 05:00 09/29/23 04:00 Room Air 09/29/23 04:00 09/29/23 05:41 Room Air 09/29/23 05:41 Room Air 09/29/23 02:30 Room Air 09/29/23 02:00 Nasal Cannula 2 09/29/23 01:31 Nasal Cannula 2 09/28/23 23:51 09/29/23 00:45 Nasal Cannula 2 09/29/23 00:40 Nasal Cannula 2 09/29/23 00:30 Nasal Cannula 2 09/29/23 00:15 Nasal Cannula 2 09/29/23 00:05 Room Air 2 09/28/23 23:59 Nasal Cannula 2 09/28/23 23:52 Nasal Cannula 2 Laboratory Results Abnormal Lab Results 09/28/23 09/28/23 09/28/23 23:50 23:50 23:50 WBC 12.40 H RBC 5.37 Hgb 16.5 POC Hgb Hct 48.7 POC Hct MCV 90.7 MCH 30.7 MCHC 33.9 RDW Std Deviation 41.8 RDW Coeff of Wil 12.7 Plt Count 188 MPV 8.8 L Immature Gran % (Auto) 0.6 Neut % (Auto) 82.1 Lymph % (Auto) 7.8 Bleckley % (Auto) 9.0 Eos % (Auto) 0.3 Baso % (Auto) 0.2 Neut # (Auto) 10.17 H Lymph # (Auto) 0.97 L Bleckley # (Auto) 1.11 H Eos # (Auto) 0.04 Baso # (Auto) 0.03 Immature Gran # (Auto) 0.08 PT INR APTT PTT Ratio POC Sodium Sodium 135 L POC Potassium Potassium 3.9 POC Chloride Chloride 100 Carbon Dioxide 25 POC Total CO2 Anion Gap 10 POC Anion Gap POC BUN BUN 15 Creatinine 1.46 H POC Creatinine Est Cr Clr Drug Dosing 51.8 Est GFR ( Amer) 53.4 Est GFR (Non-Af Amer) 46.1 BUN/Creatinine Ratio 10.3 Glucose 156 H POC Glucose POC Glucose (other) Estimat Average Glucose Hemoglobin A1c Calcium 9.2 POC Ioniz Calcium Brie Magnesium 2.1 Total Bilirubin 0.8 AST 54 H ALT 47 Alkaline Phosphatase 69 Troponin I High Sens 17.7 Total Protein 8.3 Albumin 4.5 Globulin 3.8 Albumin/Globulin Ratio 1.2 Lipase 25 TSH 1.766 Free T4 Free T3 Urine Color Urine Appearance Urine pH Ur Specific Wallace Urine Protein Urine Glucose (UA) Urine Ketones Urine Blood Urine Nitrite Urine Bilirubin Urine Urobilinogen Ur Leukocyte Esterase Urine WBC (Auto) Urine RBC (Auto) U Hyaline Cast (Auto) U Epithel Cells (Auto) Urine Bacteria (Auto) Adenovirus (PCR) Anaplasma Smear Babesia Smear B. pertussis DNA (PCR) B.parapertussis DNA PCR Lyme Disease IgG Ab Negative Lyme Disease IgM Ab Positive A C. pneumoniae DNA (PCR) Coronavirus OC43 (PCR) Coronavirus HKU1 (PCR) Coronavirus 229E (PCR) SARS-CoV-2 (PCR) Coronavirus NL63 (PCR) Human Metapneumovir PCR Influenza Type A (PCR) Influenza Type B (PCR) M. pneumoniae (PCR) Parainfluenza 1 (PCR) Parainfluenza 2 (PCR) Parainfluenza 3 (PCR) Parainfluenza 4 (PCR) RSV (PCR) Entero/Rhino (PCR) 09/28/23 09/28/23 09/28/23 23:50 23:50 23:57 WBC RBC Hgb POC Hgb 17.7 Hct POC Hct 52 MCV MCH MCHC RDW Std Deviation RDW Coeff of Wil Plt Count MPV Immature Gran % (Auto) Neut % (Auto) Lymph % (Auto) Bleckley % (Auto) Eos % (Auto) Baso % (Auto) Neut # (Auto) Lymph # (Auto) Bleckley # (Auto) Eos # (Auto) Baso # (Auto) Immature Gran # (Auto) PT 11.3 INR 1.0 APTT 25.9 PTT Ratio 0.9 POC Sodium 138 Sodium POC Potassium 4.1 Potassium POC Chloride 100 L Chloride Carbon Dioxide POC Total CO2 28 Anion Gap POC Anion Gap 15.0 L POC BUN 18 BUN Creatinine POC Creatinine 1.4 H Est Cr Clr Drug Dosing Est GFR ( Amer) Est GFR (Non-Af Amer) BUN/Creatinine Ratio Glucose POC Glucose POC Glucose (other) 157 H Estimat Average Glucose Hemoglobin A1c Calcium POC Ioniz Calcium Brie 1.10 L Magnesium Total Bilirubin AST ALT Alkaline Phosphatase Troponin I High Sens Total Protein Albumin Globulin Albumin/Globulin Ratio Lipase TSH Free T4 Free T3 Urine Color Urine Appearance Urine pH Ur Specific Wallace Urine Protein Urine Glucose (UA) Urine Ketones Urine Blood Urine Nitrite Urine Bilirubin Urine Urobilinogen Ur Leukocyte Esterase Urine WBC (Auto) Urine RBC (Auto) U Hyaline Cast (Auto) U Epithel Cells (Auto) Urine Bacteria (Auto) Adenovirus (PCR) Anaplasma Smear See Comment Babesia Smear See Comment B. pertussis DNA (PCR) B.parapertussis DNA PCR Lyme Disease IgG Ab Lyme Disease IgM Ab C. pneumoniae DNA (PCR) Coronavirus OC43 (PCR) Coronavirus HKU1 (PCR) Coronavirus 229E (PCR) SARS-CoV-2 (PCR) Coronavirus NL63 (PCR) Human Metapneumovir PCR Influenza Type A (PCR) Influenza Type B (PCR) M. pneumoniae (PCR) Parainfluenza 1 (PCR) Parainfluenza 2 (PCR) Parainfluenza 3 (PCR) Parainfluenza 4 (PCR) RSV (PCR) Entero/Rhino (PCR) 09/29/23 09/29/23 09/29/23 00:44 02:27 04:08 WBC RBC Hgb POC Hgb Hct POC Hct MCV MCH MCHC RDW Std Deviation RDW Coeff of Wil Plt Count MPV Immature Gran % (Auto) Neut % (Auto) Lymph % (Auto) Bleckley % (Auto) Eos % (Auto) Baso % (Auto) Neut # (Auto) Lymph # (Auto) Bleckley # (Auto) Eos # (Auto) Baso # (Auto) Immature Gran # (Auto) PT INR APTT PTT Ratio POC Sodium Sodium POC Potassium Potassium POC Chloride Chloride Carbon Dioxide POC Total CO2 Anion Gap POC Anion Gap POC BUN BUN Creatinine POC Creatinine Est Cr Clr Drug Dosing Est GFR ( Amer) Est GFR (Non-Af Amer) BUN/Creatinine Ratio Glucose POC Glucose POC Glucose (other) Estimat Average Glucose 137 Hemoglobin A1c 6.4 H Calcium POC Ioniz Calcium Brie Magnesium Total Bilirubin AST ALT Alkaline Phosphatase Troponin I High Sens Total Protein Albumin Globulin Albumin/Globulin Ratio Lipase TSH Free T4 Free T3 Urine Color Dark Yellow Urine Appearance Clear Urine pH 5.0 Ur Specific Wallace 1.021 Urine Protein 1+ H Urine Glucose (UA) Negative Urine Ketones 1+ H Urine Blood 2+ H Urine Nitrite Negative Urine Bilirubin Negative Urine Urobilinogen Negative Ur Leukocyte Esterase Negative Urine WBC (Auto) 1-5 Urine RBC (Auto) 10-30 H U Hyaline Cast (Auto) 10-30 H U Epithel Cells (Auto) 10-20 H Urine Bacteria (Auto) Negative Adenovirus (PCR) Not Detected Anaplasma Smear Babesia Smear B. pertussis DNA (PCR) Not Detected B.parapertussis DNA PCR Not Detected Lyme Disease IgG Ab Lyme Disease IgM Ab C. pneumoniae DNA (PCR) Not Detected Coronavirus OC43 (PCR) Not Detected Coronavirus HKU1 (PCR) Not Detected Coronavirus 229E (PCR) Not Detected SARS-CoV-2 (PCR) DETECTED A* Coronavirus NL63 (PCR) Not Detected Human Metapneumovir PCR Not Detected Influenza Type A (PCR) Not Detected Influenza Type B (PCR) Not Detected M. pneumoniae (PCR) Not Detected Parainfluenza 1 (PCR) Not Detected Parainfluenza 2 (PCR) Not Detected Parainfluenza 3 (PCR) Not Detected Parainfluenza 4 (PCR) Not Detected RSV (PCR) Not Detected Entero/Rhino (PCR) Not Detected 09/29/23 09/29/23 09/29/23 04:08 04:08 07:24 WBC 10.73 RBC 5.13 Hgb 15.7 POC Hgb Hct 45.6 POC Hct MCV 88.9 MCH 30.6 MCHC 34.4 RDW Std Deviation 41.1 RDW Coeff of Wil 12.6 Plt Count 192 MPV 8.8 L Immature Gran % (Auto) 0.5 Neut % (Auto) 81.8 Lymph % (Auto) 7.1 Bleckley % (Auto) 10.3 Eos % (Auto) 0.0 Baso % (Auto) 0.3 Neut # (Auto) 8.79 H Lymph # (Auto) 0.76 L Bleckley # (Auto) 1.10 H Eos # (Auto) 0.00 Baso # (Auto) 0.03 Immature Gran # (Auto) 0.05 PT INR APTT PTT Ratio POC Sodium Sodium 137 POC Potassium Potassium 3.4 L POC Chloride Chloride 103 Carbon Dioxide 24 POC Total CO2 Anion Gap 10 POC Anion Gap POC BUN BUN 16 Creatinine 1.12 D POC Creatinine Est Cr Clr Drug Dosing 67.5 Est GFR ( Amer) 73.6 Est GFR (Non-Af Amer) 63.5 BUN/Creatinine Ratio 14.3 Glucose 173 H POC Glucose 130 H POC Glucose (other) Estimat Average Glucose Hemoglobin A1c Calcium 8.6 POC Ioniz Calcium Brie Magnesium 2.0 Total Bilirubin 0.5 AST 52 H ALT 45 Alkaline Phosphatase 60 Troponin I High Sens Total Protein 7.5 Albumin 4.1 Globulin 3.4 Albumin/Globulin Ratio 1.2 Lipase TSH Free T4 Free T3 Urine Color Urine Appearance Urine pH Ur Specific Wallace Urine Protein Urine Glucose (UA) Urine Ketones Urine Blood Urine Nitrite Urine Bilirubin Urine Urobilinogen Ur Leukocyte Esterase Urine WBC (Auto) Urine RBC (Auto) U Hyaline Cast (Auto) U Epithel Cells (Auto) Urine Bacteria (Auto) Adenovirus (PCR) Anaplasma Smear Babesia Smear B. pertussis DNA (PCR) B.parapertussis DNA PCR Lyme Disease IgG Ab Lyme Disease IgM Ab C. pneumoniae DNA (PCR) Coronavirus OC43 (PCR) Coronavirus HKU1 (PCR) Coronavirus 229E (PCR) SARS-CoV-2 (PCR) Coronavirus NL63 (PCR) Human Metapneumovir PCR Influenza Type A (PCR) Influenza Type B (PCR) M. pneumoniae (PCR) Parainfluenza 1 (PCR) Parainfluenza 2 (PCR) Parainfluenza 3 (PCR) Parainfluenza 4 (PCR) RSV (PCR) Entero/Rhino (PCR) 09/29/23 09/29/23 08:17 08:17 WBC RBC Hgb POC Hgb Hct POC Hct MCV MCH MCHC RDW Std Deviation RDW Coeff of Wil Plt Count MPV Immature Gran % (Auto) Neut % (Auto) Lymph % (Auto) Bleckley % (Auto) Eos % (Auto) Baso % (Auto) Neut # (Auto) Lymph # (Auto) Bleckley # (Auto) Eos # (Auto) Baso # (Auto) Immature Gran # (Auto) PT INR APTT PTT Ratio POC Sodium Sodium POC Potassium Potassium POC Chloride Chloride Carbon Dioxide POC Total CO2 Anion Gap POC Anion Gap POC BUN BUN Creatinine POC Creatinine Est Cr Clr Drug Dosing Est GFR ( Amer) Est GFR (Non-Af Amer) BUN/Creatinine Ratio Glucose POC Glucose POC Glucose (other) Estimat Average Glucose Hemoglobin A1c Calcium POC Ioniz Calcium Brie Magnesium Total Bilirubin AST ALT Alkaline Phosphatase Troponin I High Sens Total Protein Albumin Globulin Albumin/Globulin Ratio Lipase TSH Free T4 0.81 Free T3 2.64 Urine Color Urine Appearance Urine pH Ur Specific Wallace Urine Protein Urine Glucose (UA) Urine Ketones Urine Blood Urine Nitrite Urine Bilirubin Urine Urobilinogen Ur Leukocyte Esterase Urine WBC (Auto) Urine RBC (Auto) U Hyaline Cast (Auto) U Epithel Cells (Auto) Urine Bacteria (Auto) Adenovirus (PCR) Anaplasma Smear Babesia Smear B. pertussis DNA (PCR) B.parapertussis DNA PCR Lyme Disease IgG Ab Lyme Disease IgM Ab C. pneumoniae DNA (PCR) Coronavirus OC43 (PCR) Coronavirus HKU1 (PCR) Coronavirus 229E (PCR) SARS-CoV-2 (PCR) Coronavirus NL63 (PCR) Human Metapneumovir PCR Influenza Type A (PCR) Influenza Type B (PCR) M. pneumoniae (PCR) Parainfluenza 1 (PCR) Parainfluenza 2 (PCR) Parainfluenza 3 (PCR) Parainfluenza 4 (PCR) RSV (PCR) Entero/Rhino (PCR) Diagnostic Findings Admission suggested faint bibasilar airspace opacities. Echocardiogram performed 09/29/2023: Normal LV systolic function without significant valvular heart disease ECG Additional Comments: Obtained this admission revealed atrial fibrillation rapid ventricular response. Some nonspecific ST and T-wave changes. PG Care Time/CCT Total # of Minutes Spent Total Time Spent with Patient: Total time spent is greater than 50% in coordination of care (as documented) at patient's floor/unit and/or counseling patient: Coding Level of Care Code 37109 INT INP/OBS CARE 3/75MIN Diagnoses Atrial fibrillation with rapid ventricular response I48.91
[2023-09-29] MEDS ORDERED: METOPROLOL TARTRATE 25 MG TAB PO SCH ×2 (10:25→10:30)
[2023-09-29] MEDS: METOPROLOL TARTRATE 50 MG TAB PO SCH ×2 (11:46→20:56)
--- NOTE | 2023-09-29 14:37 | Hospitalist Progress Note ---
Date of Service September 29, 2023 Assessment & Plan (1) COVID-19 virus infection: Plan: COVID positivity by nasal swab. He may have a viral illness. No indication for remdesivir at this time. (2) Lyme disease: Plan: He does have some tick exposure but he does not recall seeing a tick on his body. Nevertheless, IgM is positive. He is currently on intravenous doxycycline and Rocephin. (3) KELLY (acute kidney injury): Plan: Monitor intake and output. Serial labs (4) Atrial fibrillation with rapid ventricular response: Plan: New onset. He has since converted to normal sinus rhythm. Thyroid profile is normal. Diltiazem drip has been discontinued. He is now on oral metoprolol. Cardiology consultation and recommendations appreciated (5) Generalized weakness: Plan: Supportive care. 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 Sliding scale coverage. Continue current medical management (7) Fall: Plan: Due to generalized weakness from acute viral illness. Supportive care. OT and PT assessments when appropriate Plan To be determined Admission and Anticipated Discharge Date Admission Date: September 29, 2023 Subjective Alert and oriented. No distress. He has converted from atrial fibrillation back to normal sinus rhythm. Diltiazem drip has been discontinued. He is now on metoprolol. Cardiac echo reveals normal ejection fraction with no apparent regional wall motion abnormalities. Cardiology consultation and recommendations appreciated. Free T3 and free T4 levels are normal. Review of Systems Review of Systems: Constitutional-no fever or chills ENT-no blurred vision, no double vision, no epistaxis, no sore throat Respiratory-nonproductive cough. No wheezing. No hemoptysis. Some shortness of breath noted with exertion Cardiac-no chest pain, no syncope. He did notice rapid heart rate GI-no nausea, vomiting, diarrhea, melena, hematochezia -no urinary retention, no urinary incontinence, no dysuria, no hematuria Musculoskeletal-no joint pain, no muscle tenderness Skin-no bruising, no rashes, no pruritus Neuro- no paresthesia. Generalized weakness Psych-no depression, no anxiety Physical Exam Physical Exam: General-alert and oriented x3, no fevers, no chills HEENT-head atraumatic and normocephalic, pupils equal and reactive to light, extraocular muscles intact Neck-no lymphadenopathy or thyromegaly, trachea midline Chest-scattered bilateral rhonchi. No wheezing. No dullness to percussion Cardiac-regular rate and rhythm, normal S1 and S2 Abdomen-normal bowel sounds, nontender, no hepatosplenomegaly Extremities-no cyanosis, clubbing, or edema Neuro-cranial nerves II through XII intact, motor and sensory function within normal limits, strength symmetrical with generalized weakness, no focal deficits Psych-normal affect, normal mood Results & Data Results & Data Vital Signs (Past 12 Hours) Vital Signs Pulse Pulse Resp BP BP Pulse Ox O2 Del Method 09/29/23 10:27 84 16 139/78 92 Room Air 09/29/23 09:30 116 H 35 H 89 L 09/29/23 09:30 129/86 09/29/23 09:01 156 H 37 H 93 09/29/23 09:01 109/87 09/29/23 09:00 157 H 38 H 91 09/29/23 08:30 154 H 24 91 09/29/23 08:30 114/94 09/29/23 09:58 82 16 129/86 92 Room Air 09/29/23 08:22 156 H 16 142/80 H 95 Room Air 09/29/23 08:00 155 H 25 H 91 09/29/23 08:00 142/80 H 09/29/23 07:30 157 H 31 H 91 09/29/23 07:30 116/96 09/29/23 07:00 160 H 22 92 09/29/23 07:00 111/73 09/29/23 07:01 158 H 09/29/23 06:31 152 H 22 126/100 93 Room Air 09/29/23 06:10 139 H 09/29/23 05:30 120 H 27 H 93 Room Air 09/29/23 05:30 120/76 09/29/23 05:00 132 H 21 92 Room Air 09/29/23 05:00 121/85 09/29/23 04:00 127 H 31 H 93 Room Air 09/29/23 04:00 129/81 09/29/23 05:41 Room Air 09/29/23 05:41 112 H 24 120/76 92 Room Air Laboratory Results 09/29/23 04:08 09/29/23 04:08 PG Care Time/CCT Total # of Minutes Spent Total Time Spent with Patient: Total time spent is greater than 50% in coordination of care (as documented) at patient's floor/unit and/or counseling patient: Coding Level of Care Code 78938 SUB INP/OBS CARE 350MIN Diagnoses COVID-19 virus infection U07.1 Lyme disease A69.20 KELLY (acute kidney injury) N17.9 Atrial fibrillation with rapid ventricular response I48.91 Generalized weakness R53.1 Type 2 diabetes mellitus with obesity E11.69; E66.9 Fall W19.XXXA
[2023-09-29] MEDS: ROSUVASTATIN CALCIUM 5 MG TAB PO SCH (20:56)
[2023-09-29] MEDS ORDERED: LIDOCAINE 5% 1 PATCH TD ONE (22:15)
[2023-09-29] MEDS ORDERED: KETOROLAC TROMETHAMINE 15 MG/ML VIAL IV ONE (23:54)
[2023-09-30] MEDS: DOXYCYCLINE HYCLATE 100 MG in DEXTROSE 5% MINI-B 100 ML IV SCH ×2 (01:26→14:20)
[2023-09-30] MEDS: SODIUM CHLORIDE 0.9% 1,000 ML IV SCH (01:29)
[2023-09-30 07:16] LABS: Hematocrit (blood only) 42.2 % (42.0-52.0); Hemoglobin 14.2 g/dl (14.0-18.0); Immature Granulocytes # (auto) 0.04 K/uL (0.01-0.20); Immature Granulocytes % (auto) 0.4 %; Lymphocytes # (auto) 1.61 K/uL (1.20-3.40); Mean Corpuscular Hemoglobin 30.1 pg (25.0-34.0); Mean Corpuscular Hgb Conc 33.6 g/dL (32.0-36.0); Mean Corpuscular Volume 89.6 fL (80.0-100.0); Mean Platelet Volume 9.1 fL (9.4-12.4); Monocytes # (auto) 0.86 K/uL (0.11-0.59); Monocytes % (auto) 9.6 %; Neutrophils # (auto) 6.41 K/uL (1.40-6.50); Platelet Count 168 K/uL (130-400); RDW Coefficient of Variation 12.8 % (11.5-14.5); RDW Standard Deviation 42.1 fL (36.4-46.3); Red Blood Count 4.71 M/uL (4.70-6.10); White Blood Count 8.92 K/ul (4.8-10.8)
[2023-09-30 07:33] LABS: Albumin Globulin Ratio 1.2 (0.9-2); Albumin Level 3.6 gm/dl (3.4-5.0); BUN Creatinine Ratio 18.4 (10-20); Bilirubin,Total 0.7 mg/dl (0.2-1.0); Calcium 8.1 mg/dl (8.6-10.3); Creatinine Clr Calc Pharmacy 76.7 ml/min; Est GFR (African American) 86.5 ml/min; Est GFR (Non-African American) 74.6 ml/min; Magnesium 1.9 mg/dl (1.7-2.4); Total Protein 6.6 gm/dl (6.0-8.3)
[2023-09-30] MEDS: ASPIRIN 81 MG ECTAB PO SCH (08:26)
[2023-09-30] MEDS: CHOLECALCIFEROL 1,000 UNITS 25 MCG TAB PO SCH (08:26)
[2023-09-30] MEDS: METOPROLOL TARTRATE 50 MG TAB PO SCH ×2 (08:27→19:54)
[2023-09-30] MEDS: VITAMIN B COMPLEX TAB PO SCH (08:27)
[2023-09-30] MEDS: INSULIN ASPART PER UNIT CHARGE SC SCH ×4 (08:30→20:29)
[2023-09-30] MEDS: ASCORBIC ACID 500 MG TAB PO SCH ×2 (08:30→19:54)
--- NOTE | 2023-09-30 08:56 | Electrocardiogram Report ---
Test Reason : Blood Pressure : / mmHG Vent. Rate : 060 BPM Atrial Rate : 060 BPM P-R Int : 168 ms QRS Dur : 092 ms QT Int : 444 ms P-R-T Axes : 021 054 022 degrees QTc Int : 444 ms Sinus rhythm with Premature atrial complexes Otherwise normal ECG When compared with ECG of 29-SEP-2023 09:54, (unconfirmed) Incomplete right bundle branch block is no longer Present Confirmed by Hipolito Walker ([id number] on 09/30/2023 8:55:29 AM Referred By: REFERRED SELF Confirmed By:Juan Carlos Walker
--- NOTE | 2023-09-30 08:59 | Electrocardiogram Report ---
Test Reason : Blood Pressure : / mmHG Vent. Rate : 083 BPM Atrial Rate : 083 BPM P-R Int : 176 ms QRS Dur : 096 ms QT Int : 370 ms P-R-T Axes : 047 064 064 degrees QTc Int : 434 ms Sinus rhythm with Premature atrial complexes Incomplete right bundle branch block Borderline ECG When compared with ECG of 28-SEP-2023 23:44, Significant changes have occurred Confirmed by Hipolito Walker ([id number] on 09/30/2023 8:59:32 AM Referred By: REFERRED SELF Confirmed By:Juan Carlos Walker
[2023-09-30] MEDS ORDERED: KETOROLAC TROMETHAMINE 15 MG/ML VIAL IV PRN (10:07)
--- NOTE | 2023-09-30 11:22 | Cardiology Progress Note ---
Date of Service September 30, 2023 Assessment & Plan (1) Atrial fibrillation with rapid ventricular response: Plan 1. Atrial fibrillation: He converted spontaneously yesterday., continue on his current dose of metoprolol tartrate. This could be changed to succinate for convenience purposes at the time of discharge or continued as tartrate. Begin systemic anticoagulation when it is safe and convenient. Xarelto 20 mg daily would be good options. He can follow-up in the cardiology clinic in a few weeks after discharge. Cardiology will sign off at this point. Please contact the on-call [facility] controller operations and hr manager for additional questions or concerns regarding this patient Admission and Anticipated Discharge Date Admission Date: September 29, 2023 Subjective This morning the patient's main concern is back discomfort. Apparently this is where he injured himself when he fell coming to the hospital. He has had an inadequate response to analgesics. The penis prevented a lot of ambulation and he has some difficulty with deep inspiration as result as well. Unaware of any palpitations. No chest pains. No breathing difficulty at rest. Review of Systems Review of Systems: Per HPI Physical Exam Physical Exam: The patient is alert and oriented. Mood and affect appeared normal. He answered all questions appropriately. Mildly hard of hearing. Obese HEENT: Pupils are equal and reactive to light and accommodation. Extraocular movements are intact. The sclerae are anicteric. Neuro: Cranial nerves intact Lungs: Clear to auscultation bilaterally. He has good air movement without use of accessory muscles. No rales wheezes or rhonchi. Cardiac: Heart demonstrates regular rhythm normal rate. Normal S1 and S2. No murmurs on examination. Pulses: The patient has palpable radial pulses bilaterally that are equal in intensity Extremities: There was no evidence of hypoperfusion. There is no cyanosis or clubbing. There is no edema. Skin: I did not appreciate any rashes on examination today. Results & Data Vital Signs (Past 12 Hours) Vital Signs Temp Pulse Resp BP Pulse Ox O2 Del Method 09/30/23 07:43 36.7 C 63 22 161/90 H 97 Room Air 09/30/23 04:07 36.4 C L 59 L 16 125/71 97 Room Air 09/30/23 00:34 Room Air 09/29/23 23:24 36.7 C 64 18 142/83 H 94 Room Air Laboratory Results Abnormal Lab Results 10/09/29/23 09/29/23 11:24 18:27 20:54 WBC RBC Hgb Hct MCV MCH MCHC RDW Std Deviation RDW Coeff of Wil Plt Count MPV Immature Gran % (Auto) Neut % (Auto) Lymph % (Auto) Garza % (Auto) Eos % (Auto) Baso % (Auto) Neut # (Auto) Lymph # (Auto) Garza # (Auto) Eos # (Auto) Baso # (Auto) Immature Gran # (Auto) Sodium Potassium Chloride Carbon Dioxide Anion Gap BUN Creatinine Est Cr Clr Drug Dosing Est GFR ( Amer) Est GFR (Non-Af Amer) BUN/Creatinine Ratio Glucose POC Glucose 162 H 110 H 130 H Calcium Magnesium Total Bilirubin AST ALT Alkaline Phosphatase Total Protein Albumin Globulin Albumin/Globulin Ratio 09/30/23 09/30/23 09/30/23 06:27 06:27 07:39 WBC 8.92 RBC 4.71 Hgb 14.2 Hct 42.2 MCV 89.6 MCH 30.1 MCHC 33.6 RDW Std Deviation 42.1 RDW Coeff of Wil 12.8 Plt Count 168 MPV 9.1 L Immature Gran % (Auto) 0.4 Neut % (Auto) 72.0 Lymph % (Auto) 18.0 Garza % (Auto) 9.6 Eos % (Auto) 0.0 Baso % (Auto) 0.0 Neut # (Auto) 6.41 Lymph # (Auto) 1.61 Garza # (Auto) 0.86 H Eos # (Auto) 0.00 Baso # (Auto) 0.00 Immature Gran # (Auto) 0.04 Sodium 138 Potassium 4.0 Chloride 108 H Carbon Dioxide 25 Anion Gap 5 BUN 18 Creatinine 0.98 Est Cr Clr Drug Dosing 76.7 Est GFR ( Amer) 86.5 Est GFR (Non-Af Amer) 74.6 BUN/Creatinine Ratio 18.4 Glucose 99 POC Glucose 99 Calcium 8.1 L Magnesium 1.9 Total Bilirubin 0.7 AST 48 H ALT 35 Alkaline Phosphatase 47 Total Protein 6.6 Albumin 3.6 Globulin 3.0 Albumin/Globulin Ratio 1.2 Diagnostic Findings Admission suggested faint bibasilar airspace opacities. Echocardiogram performed 09/29/2023: Normal LV systolic function without significant valvular heart disease ECG Additional Comments: Obtained this admission revealed atrial fibrillation rapid ventricular response. Some nonspecific ST and T-wave changes. PG Care Time/CCT Total # of Minutes Spent Total Time Spent with Patient: Total time spent is greater than 50% in coordination of care (as documented) at patient's floor/unit and/or counseling patient: Coding Level of Care Code 69885 SUB INP/OBS CARE 2/35MIN Diagnoses Atrial fibrillation with rapid ventricular response I48.91
--- NOTE | 2023-09-30 13:39 | Hospitalist Progress Note ---
Date of Service September 30, 2023 Assessment & Plan (1) COVID-19 virus infection: Plan: COVID positivity by nasal swab. He may have a viral illness. No indication for remdesivir at this time. (2) Lyme disease: Plan: He does have some tick exposure but he does not recall seeing a tick on his body. Nevertheless, IgM is positive. He is currently on intravenous doxycycline and Rocephin. We will continue oral doxycycline at discharge (3) KELLY (acute kidney injury): Plan: Monitor intake and output. Serial labs (4) Atrial fibrillation with rapid ventricular response: Plan: New onset. He has since converted to normal sinus rhythm. Thyroid profile is normal. Diltiazem drip has been discontinued. He is now on oral metoprolol. Cardiology consultation and recommendations appreciated. Xarelto has been started (5) Generalized weakness: Plan: Supportive care. 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 Sliding scale coverage. Continue current medical management (7) Fall: Plan: Due to generalized weakness from acute viral illness. Supportive care. OT and PT assessments when appropriate Plan Hopefully home tomorrow, October 01 Admission and Anticipated Discharge Date Admission Date: September 29, 2023 Subjective Alert and oriented. He has converted to normal sinus rhythm and is now on oral metoprolol. Xarelto started per cardiology recommendations. Musculoskeletal right flank pain is main concern at this point. He did not tolerate IV Toradol very well. He has requested Advil which she takes at home on a as needed basis. Mild hypokalemia has been corrected. He remains on Rocephin and doxycycline intravenously for now. He will remain on oral doxycycline at discharge Review of Systems Review of Systems: Constitutional-no fever or chills ENT-no blurred vision, no double vision, no epistaxis, no sore throat Respiratory-nonproductive cough. No wheezing. No hemoptysis. Some shortness of breath noted with exertion Cardiac-no chest pain, no syncope. He did notice rapid heart rate GI-no nausea, vomiting, diarrhea, melena, hematochezia -no urinary retention, no urinary incontinence, no dysuria, no hematuria Musculoskeletal-no joint pain, no muscle tenderness Skin-no bruising, no rashes, no pruritus Neuro- no paresthesia. Generalized weakness Psych-no depression, no anxiety Physical Exam Physical Exam: General-alert and oriented x3, no fevers, no chills HEENT-head atraumatic and normocephalic, pupils equal and reactive to light, extraocular muscles intact Neck-no lymphadenopathy or thyromegaly, trachea midline Chest-scattered bilateral rhonchi. No wheezing. No dullness to percussion Cardiac-regular rate and rhythm, normal S1 and S2 Abdomen-normal bowel sounds, nontender, no hepatosplenomegaly Extremities-no cyanosis, clubbing, or edema Neuro-cranial nerves II through XII intact, motor and sensory function within normal limits, strength symmetrical with generalized weakness, no focal deficits Psych-normal affect, normal mood Results & Data Results & Data Vital Signs (Past 12 Hours) Vital Signs Temp Pulse Resp BP Pulse Ox O2 Del Method 09/30/23 12:15 36.6 C 67 20 135/72 95 Room Air 09/30/23 07:43 36.7 C 63 22 161/90 H 97 Room Air 09/30/23 04:07 36.4 C L 59 L 16 125/71 97 Room Air Laboratory Results 09/30/23 06:27 09/30/23 06:27 PG Care Time/CCT Total # of Minutes Spent Total Time Spent with Patient: Total time spent is greater than 50% in coordination of care (as documented) at patient's floor/unit and/or counseling patient: Coding Level of Care Code 28920 SUB INP/OBS CARE 3/50MIN Diagnoses COVID-19 virus infection U07.1 Lyme disease A69.20 KELLY (acute kidney injury) N17.9 Atrial fibrillation with rapid ventricular response I48.91 Generalized weakness R53.1 Type 2 diabetes mellitus with obesity E11.69; E66.9 Fall W19.XXXA
[2023-09-30] MEDS: RIVAROXABAN 20 MG TAB PO SCH ×2 (15:12→18:46)
[2023-09-30] MEDS: IBUPROFEN 200 MG TAB PO PRN (19:53)
[2023-09-30] MEDS: ROSUVASTATIN CALCIUM 5 MG TAB PO SCH (19:56)
[2023-10-01] MEDS: DOXYCYCLINE HYCLATE 100 MG in DEXTROSE 5% MINI-B 100 ML IV SCH (01:05)
[2023-10-01 06:47] LABS: Basophils # (auto) 0.01 K/uL (0.00-0.20); Basophils % (auto) 0.1 %; Eosinophils # (auto) 0.02 K/uL (0.00-0.50); Eosinophils % (auto) 0.2 %; Hemoglobin 15.3 g/dl (14.0-18.0); Immature Granulocytes # (auto) 0.03 K/uL (0.01-0.20); Immature Granulocytes % (auto) 0.3 %; Lymphocytes # (auto) 1.75 K/uL (1.20-3.40); Lymphocytes % (auto) 18.9 %; Mean Corpuscular Hemoglobin 30.4 pg (25.0-34.0); Mean Corpuscular Volume 89.5 fL (80.0-100.0); Mean Platelet Volume 8.8 fL (9.4-12.4); Monocytes # (auto) 0.75 K/uL (0.11-0.59); Monocytes % (auto) 8.1 %; Neutrophils % (auto) 72.4 %; Platelet Count 167 K/uL (130-400); RDW Coefficient of Variation 12.7 % (11.5-14.5); RDW Standard Deviation 41.4 fL (36.4-46.3); Red Blood Count 5.03 M/uL (4.70-6.10); White Blood Count 9.26 K/ul (4.8-10.8)
[2023-10-01 07:11] LABS: Albumin Globulin Ratio 1.2 (0.9-2); Albumin Level 3.9 gm/dl (3.4-5.0); BUN Creatinine Ratio 16.7 (10-20); Bilirubin,Total 0.9 mg/dl (0.2-1.0); Calcium 8.7 mg/dl (8.6-10.3); Creatinine Clr Calc Pharmacy 83.4 ml/min; Est GFR (African American) 95.8 ml/min; Est GFR (Non-African American) 82.7 ml/min; Globulin 3.2 gm/dl (2.5-4.0); Magnesium 1.8 mg/dl (1.7-2.4); Potassium 3.7 mmol/L (3.5-5.1); Total Protein 7.1 gm/dl (6.0-8.3)
[2023-10-01] MEDS: ASCORBIC ACID 500 MG TAB PO SCH (08:51)
[2023-10-01] MEDS: CHOLECALCIFEROL 1,000 UNITS 25 MCG TAB PO SCH (08:52)
[2023-10-01] MEDS: ASPIRIN 81 MG ECTAB PO SCH (08:52)
[2023-10-01] MEDS: METOPROLOL TARTRATE 50 MG TAB PO SCH (08:52)
[2023-10-01] MEDS: VITAMIN B COMPLEX TAB PO SCH (08:52)
[2023-10-01] MEDS: INSULIN ASPART PER UNIT CHARGE SC SCH ×2 (08:56→12:11)
[2023-10-01] MEDS: IBUPROFEN 200 MG TAB PO PRN (09:00)
--- NOTE | 2023-10-01 11:57 | Discharge Summary ---
Date of Service October 01, 2023 Admission HPI Per Admitting Provider The patient is a 78-year-old male with a past medical history including diabetes mellitus, obesity, BPH with LUTS, hyperlipidemia, fatty liver and vitamin D deficiency. The patient presents to the emergency department as noted above in chief complaint Principal Diagnosis New onset atrial fibrillation with rapid ventricular rate, suspected acute Lyme disease, acute kidney injury, COVID positivity by nasal swab Discharge Exam General-alert and oriented x3, no fevers, no chills HEENT-head atraumatic and normocephalic, pupils equal and reactive to light, extraocular muscles intact Neck-no lymphadenopathy or thyromegaly, trachea midline Chest-scattered bilateral rhonchi. No wheezing. No dullness to percussion Cardiac-regular rate and rhythm, normal S1 and S2 Abdomen-normal bowel sounds, nontender, no hepatosplenomegaly Extremities-no cyanosis, clubbing, or edema Neuro-cranial nerves II through XII intact, motor and sensory function within normal limits, strength symmetrical with generalized weakness, no focal deficits Psych-normal affect, normal mood Discharge Data Allergies Allergy/AdvReac Type Severity Reaction Status Date / Time Nitrate Analogues Allergy Intermediate EPISTAXIS Verified 09/29/23 01:13 atorvastatin AdvReac Mild Sore tongue Verified 09/29/23 00:34 finasteride AdvReac Mild groin pain Verified 09/29/23 00:34 pravastatin AdvReac Mild Sore tongue Verified 09/29/23 00:34 tamsulosin AdvReac Mild Fatigued Verified 09/29/23 00:34 CHLOROCARBON Allergy Intermediate EYES SWELL Uncoded 09/29/23 00:34 IF INHALED Consultations 09/29/23 02:39 ED Decision to Admit Stat 09/29/23 03:21 Consult Cardiology Routine Hospital Course (1) COVID-19 virus infection: COVID positivity by nasal swab. He may have a viral illness. No indication for remdesivir at this time. Stable (2) Lyme disease: He does have some tick exposure but he does not recall seeing a tick on his body. Nevertheless, IgM is positive. He is currently on intravenous doxycycline and Rocephin. We will continue oral doxycycline at discharge (3) KELLY (acute kidney injury): Monitor intake and output. Serial labs. Resolved (4) Atrial fibrillation with rapid ventricular response: New onset. He has since converted to normal sinus rhythm. Thyroid profile is normal. Diltiazem drip has been discontinued. He is now on oral metoprolol. Cardiology consultation and recommendations appreciated. Xarelto has been started (5) Generalized weakness: Supportive care. Improved since admission. (6) Type 2 diabetes mellitus with obesity: ADA diet. Sliding scale coverage. Continue current medical management (7) Fall: Due to generalized weakness from acute viral illness. Supportive care. OT and PT while hospitalized Plan Home with home health services today, October 01 Total Time Total Time Spent Total Time Spent (In Minutes): 45 minutes Discharge Plan Discharge Items Reason For Visit: ATRIAL FIB WITH RVR. LYME DISEASE. KELLY Discharge Diagnosis: New onset atrial fibrillation with rapid ventricular rate with subsequent conversion to normal sinus rhythm, acute kidney injury, suspected acute Lyme disease, COVID positivity by nasal swab Activity: Resume your previous activity Non-emergency contact: Primary Care Provider Call non-emergency contact if: you have any medication questions and your symptoms worsen Follow-up/Referrals: Jose Hernandez, [Primary Care Provider] - Diet: Carb Consistent or DM2 and Heart Healthy Addtl Attending Provider Instructions: Take doxycycline for 4 weeks. Take metoprolol for heart rate control. Take Xarelto for blood thinner Pending Studies at Discharge: No Stand-Alone Forms: My [facility] [employer] Smoking Cessation Medications and DC Order Prescriptions: New metoprolol tartrate 50 mg Tablet 50 mg PO BID Qty: 60 0RF Xarelto 20 mg Tablet 20 mg PO DAILY Qty: 30 0RF doxycycline hyclate 100 mg capsule 100 mg PO BID 28 Days Qty: 56 0RF aspirin 81 mg tablet,delayed release (DR/EC) 81 mg PO DAILY Qty: 1 0RF Continued metformin 500 mg tablet 500 mg PO BID Qty: 180 3RF vitamin B complex [B Complex-Vitamin B12] Tablet 1 tab PO DAILY rosuvastatin 5 mg tablet 5 mg PO HS Qty: 90 3RF ascorbic acid (vitamin C) [Vitamin C] 500 mg Tablet 250 mg PO BID cholecalciferol (vitamin D3) [Vitamin D3] 25 mcg (1,000 unit) tablet 1,000 unit PO DAILY No Action aspirin 325 mg tablet 162.5 mg PO DAILY Krames/Other Patient Handouts: Managing Type 2 Diabetes Admission Data Admit Date/Time: 09/29/23 01:41 Attending Provider: De Simon Admit Provider: Narciso Yanes Primary Care Provider: Jose Hernandez Other Providers: Narciso Yanes; John Bardales Coding Level of Care Code 77612 INP/OBS DISCH >30 MIN Diagnoses COVID-19 virus infection U07.1 Lyme disease A69.20 KELLY (acute kidney injury) N17.9 Atrial fibrillation with rapid ventricular response I48.91 Generalized weakness R53.1 Type 2 diabetes mellitus with obesity E11.69; E66.9 Fall W19.XXXA
--- NOTE | 2023-10-01 12:01 | Electrocardiogram Report ---
Test Reason : Blood Pressure : / mmHG Vent. Rate : 079 BPM Atrial Rate : 079 BPM P-R Int : 164 ms QRS Dur : 086 ms QT Int : 404 ms P-R-T Axes : 016 051 033 degrees QTc Int : 463 ms Sinus rhythm with Premature atrial complexes Otherwise normal ECG When compared with ECG of 30-SEP-2023 05:03, No significant change was found Confirmed by Hipolito Walker ([id number]) on 10/01/2023 12:01:31 PM Referred By: REFERRED SELF Confirmed By:Juan Carlos Walker
[2023-10-01 16:26] LABS: Babesia microti DNA Not Detected (Not Detected)
--- NOTE | 2023-10-01 16:37 | Electrocardiogram Report ---
Test Reason : Blood Pressure : / mmHG Vent. Rate : 074 BPM Atrial Rate : 074 BPM P-R Int : 170 ms QRS Dur : 090 ms QT Int : 416 ms P-R-T Axes : 043 074 040 degrees QTc Int : 461 ms Sinus rhythm with Premature atrial complexes Otherwise normal ECG When compared with ECG of 30-SEP-2023 18:32, (unconfirmed) No significant change was found Confirmed by Hipolito Walker ([id number] on 10/01/2023 4:37:11 PM Referred By: REFERRED SELF Confirmed By:Juan Carlos Walker
[2023-10-02 13:17] LABS: 18KDIGG Band NON-REACTIVE; 23KDIGG Band NON-REACTIVE; 23KDIGM Band REACTIVE; 28KDIGG Band NON-REACTIVE; 30KDIGG Band NON-REACTIVE; 39KDIGG Band REACTIVE; 39KDIGM Band NON-REACTIVE; 41KDIGG Band REACTIVE; 41KDIGM Band NON-REACTIVE; 45KDIGG Band NON-REACTIVE; 58KDIGG Band REACTIVE; 66KDIGG Band NON-REACTIVE; 93KDIGG Band NON-REACTIVE; Lyme Antibodies, WB IgG NEGATIVE (NEGATIVE); Lyme Antibodies, WB IgM NEGATIVE (NEGATIVE)
== END 2023-10-01 13:28 | disposition home or self-care (01) | DRG 178 ==
LOC: ED 23:38 → EDINP 09-29 01:41 → SUATTDRO 09-29 01:41 → 2S 09-29 19:53

== ENCOUNTER 2024-08-15 14:40 | Inpatient (IN) ==
--- NOTE | 2024-08-15 16:13 | Emergency Department Note ---
Impression & Plan UGIB (upper gastrointestinal bleed), Atrial flutter with rapid ventricular response ED Provider Note NAME: JOSSIE BRASWELL AGE: 79 SEX: M : 1945 ARRIVES VIA: Walk-In INFORMANT: Patient, ED PROVIDER(S): Ryan Haskins MD CHIEF COMPLAINT: Dark stools, weakness MEDICAL DECISION MAKING: Patient presents due to concern for possible GI bleed. IV was established and blood work was obtained. Patient's hemoglobin noted to be at 12 down about 3 points from patient's baseline. Patient also with prerenal azotemia consistent with possible upper GI bleed. Blood work shows a white count of 12 with hemoglobin of 12. Platelet count is unremarkable. Blood sugar of 155. Patient has also had dark stools. PPI bolus and drip ordered. I did inform the on-call hospitalist service and the patient was admitted to the medicine service by Dr. Bailey. Patient did have tachyarrhythmia noted patient was evaluated at the bedside but had no symptoms. The patient was ordered IV Lopressor 5 mg. Patient subsequently had improvement in his heart rate into the 90s and did not require any further IV medication. Critical Care: I have personally spent 35 minutes of critical care time in direct management of this patient. This includes bedside care, interpretation of diagnostic studies, and testing, discussion with consultants, patient, and family members, and other require inpatient management activities. This 35 minutes is in excess of all separately billable procedures. Discussion w/ other healthcare providers: Dr. Bailey inpatient medicine service Prior /Outside records reviewed: None Differential diagnosis: Diverticulitis, AVM, coagulopathy, colitis, inflammatory bowel disease, malignancy, esophagitis, peptic ulcer disease, variceal bleed, gastritis, fissure, hemorrhoids, as well as other pathologies. Diagnostics, as interpreted by me: ECG: Sinus tachycardia, rate of 115, normal intervals, normal axis no ST elevations or TWI. Repeat EKG interpreted by myself Likely atrial flutter sawtooth pattern noted in lead 3 with variable AV block, rate of 134, normal QRS duration, normal axis. No ST elevations. Cardiac monitoring: An order was placed for continuous cardiac monitoring. The monitor shows a rate of 92 with regular rhythm. Patient was placed on pulse oximetry Medical decision rules: None Imaging studies: None HPI: Patient presents due to concern for increasing fatigability weakness as well as concern for dark stools. They have noticed that the patient has had dark stools about a week in duration. The patient states that he noticed bright red blood today. The patient does take Eliquis for known history of A-fib. Patient reports that he believes he last took his Eliquis yesterday morning and did not take it today. Patient states that he has had a prior colonoscopy with noncancerous polyps. Patient denies any chest pains or shortness of breath. He has felt increasingly weak and fatigable. Patient reportedly is also had poor appetite per his at bedside states he has not been eating or drinking as much. Other than not taking his medications this morning he has been compliant. Patient denies any true shortness of breath or chest pains. Patient denies any significant lower extremity swelling. Patient has felt a little bit lightheaded but no syncope. Patient denies any abdominal pain. PAST MEDICAL HISTORY: See Below PAST SURGICAL HISTORY: See Below SOCIAL HISTORY: See Below HOME MEDICATIONS: See Below ALLERGIES: See Below VITALS: See Below PHYSICAL EXAMINATION: GENERAL: NAD, non-toxic. Wearing glasses. EYE EXAM: Normal conjunctiva. PERRL, no anisocoria and EOM's grossly intact w/o pain. OROPHARYNX: Moist mucus membranes, grossly normal dentition. NECK: Trachea midline, no stridor. LUNGS: Clear to auscultation. Normal chest wall mechanics. HEART: NSR, systolic ejection murmur noted. ABDOMEN: Abdomen soft, non-tender, no masses, no rebound or guarding. BACK: No CVA TTP. SKIN: No rashes and no bruising. UPPER EXTREMITIES: Upper extremities are grossly normal. LOWER EXTREMITIES: Grossly normal, trace pretibial edema without calf pain or erythema. NEURO EXAM: A&O x3, cranial nerves II-XII grossly intact, normal speech, moves all 4 extremities. Past Med/Surg History Problem List (Updated 08/15/24 @ 19:41 by Ryan Haskins MD) Atrial flutter with rapid ventricular response (Acute) UGIB (upper gastrointestinal bleed) (Acute) BPH with obstruction/lower urinary tract symptoms Atrial fibrillation with rapid ventricular response T2DM (type 2 diabetes mellitus) Mild nonproliferative diabetic retinopathy (~2023) Obesity Vitamin D deficiency (Acute) Fatty liver Hyperlipidemia Medical History Lyme disease COVID-19 virus infection Atrial fibrillation Taking Eliquis Follows with [facility] cardiology History of COVID-19 09/29/23 ([facility])- "resolved" Hx of Lyme disease (~08/2023) treated Hyperlipidemia Hypertension Ventral hernia Type 2 diabetes mellitus with obesity NIDDM Sensorineural hearing loss (SNHL) of both ears Hiatal hernia Umbilical hernia Surgical History H/O ventral hernia repair (02/24/24) Robotic Assisted Laparoscopic Ventral Hernia Repair with Mesh and Umbilical Hernia Repair(Not Applicable) - Jostin Rothman DO, FACS History of nasal surgery (~10/2019) due to epistaxis Hx of colonoscopy with polypectomy History of cataract surgery History of surgical removal of ganglion cyst History of ear surgery perforated ear drum History of ankle surgery x3 b/l Family History Uncle Family hx of colon cancer Hypertension Colorectal cancer Mother Hearing loss Allergies Brother No problems noted. Uncle Heart disease Myocardial infarction H/O hemicolectomy Grandfather (Maternal) Stroke Other Cancer No family history of adverse response to anesthesia No family history of bleeding disorder Denies family history of Ovarian cancer Prostate cancer Diabetes Breast cancer Lung cancer Social History Smoking Status: Former smoker Tobacco Type: Cigarettes Age Started Using Tobacco: 18; Age Quit Using Tobacco: 31; packs per day: 1; Cigarettes Per Day: 1 PPD; Second Hand Exposure: No; Do You Dip or Chew Tobacco: No; Hx Alcohol Use: No Hx Substance Use: No Preferred Language: Japanese Communication Ability: Effective Visual Impairment: Limited Hearing Ability: Use of Hearing Aid Tracer Bullet Section Supervisor Required: No Beliefs That Will Affect Care: None marital status: Current Living Situation: Spouse current occupational status: retired current occupation: [employer] How many Children do You have: 2 Feels Safe at Home: Yes Childhood Exposure to Second-Hand Smoke: Yes Diet: diabetic caffeine: Yes (coffee ) during the past year weight has: remained stable Dental Care, Regularly: Yes Physical Activity Frequency: Does not Exercise Seatbelt Use: always Sunscreen Use: No Assistive Devices: Glasses and Hearing Aid - Bilateral Allergies Allergies Allergy/AdvReac Type Severity Reaction Status Date / Time Nitrate Analogues Allergy Intermediate Epistaxis Verified 03/10/24 11:42 atorvastatin AdvReac Mild Sore tongue Verified 03/10/24 11:42 finasteride AdvReac Mild Groin pain Verified 03/10/24 11:42 pravastatin AdvReac Mild Sore tongue Verified 03/10/24 11:42 tamsulosin AdvReac Mild Fatigued Verified 03/10/24 11:42 CHLOROCARBON Allergy Intermediate Eye Uncoded 03/10/24 11:42 swelling (if inhaled) Home Meds Home Medications Medication Instructions Recorded Confirmed ascorbic acid (vitamin C) 500 mg 250 mg PO BID 07/11/19 08/15/24 tablet (Vitamin C) cholecalciferol (vitamin D3) 25 1,000 unit PO QAM 02/20/22 08/15/24 mcg (1,000 unit) tablet (Vitamin D3) vitamin B complex (B 0.5 tab PO QAM 09/01/23 08/15/24 Complex-Vitamin B12 tablet) cod liver oil 1 cap PO 2XWK 02/08/24 08/15/24 Previous Rx's Medication Instructions Recorded metformin 500 mg tablet 500 mg PO BID #180 tabs 03/02/24 metoprolol tartrate 50 mg tablet 50 mg PO BID #180 tabs 04/05/24 apixaban 5 mg tablet (Eliquis) 5 mg PO BID #180 tabs 08/05/24 rosuvastatin 5 mg tablet 5 mg PO HS #90 tabs 08/10/24 Results & Data (ED) Vital Signs Vital Signs - 24 hr 08/15/24 14:48 08/15/24 16:23 08/15/24 16:25 Temperature 36.4 C 36.7 C Temperature Source Oral Oral Pulse Rate 97 H Pulse Rate [Apical] 102 H Pulse Strength [Apical] Normal Respiratory Rate 18 19 Respiratory Effort / Characteristics Non-Labored Spontaneous Non-Labored Spontaneous Respiratory Depth Normal Normal Respiratory Pattern Regular Regular Blood Pressure 118/64 Blood Pressure [Left Arm] 106/82 Blood Pressure Mean 82 Blood Pressure Mean [Left Arm] 90 Blood Pressure Position [Left Arm] Pulse Oximetry 96 97 98 Oxygen Delivery Method Room Air Room Air Room Air Sepsis Recent Fever Within 48 Hours No Sepsis New/Unexplained Change in Mental Status No Sepsis Action Taken by Nursing No Action Required 08/15/24 16:34 08/15/24 17:33 08/15/24 17:55 Temperature Temperature Source Pulse Rate 105 H 144 H 132 H Pulse Rate [Apical] Pulse Strength [Apical] Respiratory Rate Respiratory Effort / Characteristics Respiratory Depth Respiratory Pattern Blood Pressure 128/97 128/97 Blood Pressure [Left Arm] Blood Pressure Mean Blood Pressure Mean [Left Arm] Blood Pressure Position [Left Arm] Pulse Oximetry Oxygen Delivery Method Sepsis Recent Fever Within 48 Hours Sepsis New/Unexplained Change in Mental Status Sepsis Action Taken by Nursing 08/15/24 18:30 Temperature 36.7 C Temperature Source Oral Pulse Rate Pulse Rate [Apical] 86 Pulse Strength [Apical] Normal Respiratory Rate 23 Respiratory Effort / Characteristics Non-Labored Spontaneous Respiratory Depth Normal Respiratory Pattern Regular Blood Pressure Blood Pressure [Left Arm] 125/88 Blood Pressure Mean Blood Pressure Mean [Left Arm] 100 Blood Pressure Position [Left Arm] Lying Pulse Oximetry 97 Oxygen Delivery Method Room Air Sepsis Recent Fever Within 48 Hours Sepsis New/Unexplained Change in Mental Status Sepsis Action Taken by [facility] Medications Current Medication List: was personally reviewed by me Laboratory Data Attestation: I reviewed the patient's lab results. 08/15/24 15:48 08/15/24 15:48 Lab Results 08/15/24 08/15/24 08/15/24 Range/Units 15:48 15:52 19:04 WBC 12.26 H (4.8-10.8) K/ul RBC 4.10 L (4.70-6.10) M/uL Hgb 12.1 L (14.0-18.0) g/dl Hct 36.4 L (42.0-52.0) % MCV 88.8 (80.0-100.0) fL MCH 29.5 (25.0-34.0) pg MCHC 33.2 (32.0-36.0) g/dL RDW Std Deviation 41.9 (36.4-46.3) fL RDW Coeff of Wil 13.0 (11.5-14.5) % Plt Count 325 (130-400) K/uL MPV 9.9 (9.4-12.4) fL PT 12.0 (9.0-12.0) Seconds INR 1.1 (0.9-1.1) APTT 23 (21-31) Seconds PTT Ratio 0.9 Sodium 138 (136-145) mmol/L Potassium 4.1 (3.5-5.1) mmol/L Chloride 103 (98-107) mmol/L Carbon Dioxide 28 (21-32) mmol/L Anion Gap 7 (3-11) BUN 48 H (6-23) mg/dl Creatinine 1.01 (0.6-1.4) mg/dl Est Cr Clr Drug Dosing 70.2 ml/min Est GFR ( Amer) 82.8 ml/min Est GFR (Non-Af Amer) 71.4 ml/min BUN/Creatinine Ratio 47.5 H (10-20) Glucose 155 H (70-99(Fasting)) mg/dl POC Glucose 161 H (70-99) mg/dl Calcium 8.9 (8.6-10.3) mg/dl Magnesium 2.0 (1.7-2.4) mg/dl Total Bilirubin 0.6 (0.2-1.0) mg/dl AST 22 (13-39) U/L ALT 47 (7-52) U/L Alkaline Phosphatase 47 (34-104) U/L Troponin I High Sens 10.1 (0-20) pg/ml Total Protein 6.8 (6.0-8.3) gm/dl Albumin 3.7 (3.4-5.0) gm/dl Globulin 3.1 (2.5-4.0) gm/dl Albumin/Globulin Ratio 1.2 (0.9-2) Blood Type O Positive Antibody Screen NEGATIVE Administered Medications Pantoprazole Sodium 40 mg/ (Dextrose) 100 mls @ 20 mls/hr IV Q5H NOEMI Stop: 09/14/24 17:14 Last Admin: 08/15/24 17:19 Dose: 8 mg/hr, 20 mls/hr Documented By: LUCIANO Magnesium Sulfate/Dextrose (Magnesium Sulfate / D5w) 1 gm in 100 mls @ 50 mls/hr IV ONE ONE Stop: 08/15/24 19:56 Last Admin: 08/15/24 18:48 Dose: 50 mls/hr Documented By: LUCIANO Discontinued Medications Pantoprazole Sodium 80 mg/ (Dextrose) 120 mls @ 480 mls/hr IV NOW ONE Stop: 08/15/24 17:00 Last Admin: 08/15/24 17:18 Dose: 480 mls/hr Documented By: LUCIANO Parenteral Electrolytes (Plasma-Lyte A Ph 7.4) 500 mls @ 999 mls/hr IV .Q31M ONE Stop: 08/15/24 19:03 Last Admin: 08/15/24 19:00 Dose: 999 mls/hr Documented By: LUCIANO Metoprolol Tartrate (Metoprolol Tartrate 1 Mg/Ml Vial) 5 mg IV NOW STA Stop: 08/15/24 17:26 Last Admin: 08/15/24 17:33 Dose: 5 mg Documented By: LUL Metoprolol Tartrate (Metoprolol Tartrate 1 Mg/Ml Vial) 5 mg IV Q5M PRN PRN Reason: Tachycardia Stop: 09/14/24 17:32 Last Admin: 08/15/24 17:55 Dose: 5 mg Documented By: LUL Pantoprazole Sodium (Pantoprazole Bolus/Drip) 1 each IV NOW STA Stop: 08/15/24 16:47 Last Admin: 08/15/24 17:21 Dose: Not Given Documented By: LUCIANO Discharge Plan Visit Data Chief Complaint: Rectal Bleed Stated Complaint: BLEEDING FROM [facility] ED Provider: Ryan Haskins Discharge Problem: UGIB (upper gastrointestinal bleed), Atrial flutter with rapid ventricular response Forms Stand Alone Forms: Anna Lozabai [facility] G3 Prescriptions Prescriptions: No Action metformin 500 mg tablet 500 mg PO BID Qty: 180 3RF metoprolol tartrate 50 mg tablet 50 mg PO BID Qty: 180 3RF Eliquis 5 mg tablet 5 mg PO BID Qty: 180 2RF Hold Instructions: Resume on 02/25/24. rosuvastatin 5 mg tablet 5 mg PO HS Qty: 90 1RF vitamin B complex [B Complex-Vitamin B12] Tablet 0.5 tab PO QAM ascorbic acid (vitamin C) [Vitamin C] 500 mg Tablet 250 mg PO BID cholecalciferol (vitamin D3) [Vitamin D3] 25 mcg (1,000 unit) tablet 1,000 unit PO QAM cod liver oil Capsule 1 cap PO 2XWK Referrals Referrals: Jose Hernandez DO [Primary Care Provider] -
[2024-08-15 16:15] LABS: Hematocrit (blood only) 36.4 % (42.0-52.0); Hemoglobin 12.1 g/dl (14.0-18.0); Mean Corpuscular Hemoglobin 29.5 pg (25.0-34.0); Mean Corpuscular Hgb Conc 33.2 g/dL (32.0-36.0); Mean Corpuscular Volume 88.8 fL (80.0-100.0); Mean Platelet Volume 9.9 fL (9.4-12.4); Platelet Count 325 K/uL (130-400); RDW Standard Deviation 41.9 fL (36.4-46.3); White Blood Count 12.26 K/ul (4.8-10.8)
[2024-08-15 16:31] LABS: Albumin Globulin Ratio 1.2 (0.9-2); Albumin Level 3.7 gm/dl (3.4-5.0); BUN Creatinine Ratio 47.5 (10-20); Bilirubin,Total 0.6 mg/dl (0.2-1.0); Calcium 8.9 mg/dl (8.6-10.3); Creatinine Clr Calc Pharmacy 70.2 ml/min; Est GFR (African American) 82.8 ml/min; Est GFR (Non-African American) 71.4 ml/min; Globulin 3.1 gm/dl (2.5-4.0); Potassium 4.1 mmol/L (3.5-5.1); Total Protein 6.8 gm/dl (6.0-8.3)
[2024-08-15 16:37] LABS: Troponin I High Sensitivity 10.1 pg/ml (0-20)
[2024-08-15 16:40] LABS: INR 1.1 (0.9-1.1); Partial Thromboplastin Ratio 0.9; Partial Thromboplastin Time 23 Seconds (21-31)
[2024-08-15] MEDS: PANTOprazole 80 MG in DEXTROSE 5% 100 ML IV ONE (17:18)
[2024-08-15] MEDS: PANTOprazole 40 MG in DEXTROSE 5% MINI-B 100 ML IV SCH (17:19)
[2024-08-15] MEDS: PANTOPRAZOLE BOLUS/DRIP IV STA (17:21)
[2024-08-15] MEDS: METOPROLOL TARTRATE 1 MG/ML VIAL IV STA (17:33)
--- NOTE | 2024-08-15 17:52 | History & Physical Report ---
Date of Service August 15, 2024 Assessment & Plan (1) UGIB (upper gastrointestinal bleed): Plan: GI bleed Upper GI bleed with melena for 3-4 days, now with increased bright red blood per rectum BP normal. HR transiently elevated with Afib RVR, converted back to NSR with mild tachycardia post MTP x2. 1L Plasma-Lyte ordered +IVFM Hemoglobin baseline approximately 15, hemoglobin on admission 12.1. BUN is acutely elevated consistent with upper GI bleed. He has no epigastric tenderness, does not use NSAIDs, is on Eliquis for A-fib prophylaxis. Blood consent signed, 2 units matched and held. Hgb trended. PPI bolus and drip ordered while patient was in the ER. gtt continued GI consulted. No indication for emergent endoscopy at time of assessment Last colonoscopy 2019 reviewed. This showed submucosal descending colon nodule, diverticulosis without diverticulitis, nonbleeding internal hemorrhoids at that time. Patient does have a history of colorectal cancer in an uncle. History is more consistent with upper GI bleed than lower. He reports he has never had an upper endoscopy no received Rocephin 1 g IV while in the ER for GI prophylaxis (2) Atrial fibrillation with rapid ventricular response: Plan: A-fib with RVR Sinus on arrival to ER, converted to A-fib RVR, converted back to sinus after 2 doses of IV metoprolol Patient is on apixaban for stroke prophylaxis, this is held for acute GI bleeding Metoprolol PO converted to IV with NPO. 5mg IV q5m x3 doses PRN available on- call if needed for RVR Goal mag 2.0, 1 g given when patient was in A-fib RVR with mag pending. Follow on PCU No chest pain or chest pressure, high sensitive troponin is normal (3) BPH with obstruction/lower urinary tract symptoms: Plan: Bladder scan every shift (4) T2DM (type 2 diabetes mellitus): Plan: N.p.o. on admission Goal BSG [id number] Conservative SSI placed while n.p.o. DVT prophylaxis: Pharmacoprophylaxis held due to upper GI bleed Disposition: PCU CODE STATUS: DNR/DNI, discussed with patient Diet: N.p.o., IVFM History of Present Illness Primary Care Provider: DO De Thompson is a 79-year-old male with a past medical history of BPH with LUTS, A- fib, type II DM, DM with mild retinopathy presents to the ER with hematochezia and A-fib RVR. Patient was in sinus on arrival, converted to A-fib while in the ER. Black bowl movements for the last 4 days. No iron supplements. In the last day they have been bright red and bloody. No clots NO chest pain, no chest pressure No dyspnea. Has been dizzy and lighthede din the last 3 days. Has not passed out. Has felt presyncopal He has no abdominal pain by report, and no abdominal pain on exam No fevers, chills, sweats, cough, UTI sx Denies NSAID use. Denies prior GI bleeds. Denies alcohol use Takes eliquis, MTP, rosuvastatin, and metformin. Did not take any medicaitons today or yesterday Past colonoscopy w/ Dr. Brooke. Last colonoscopy ~3 years ago. +polyps. +Hx of colorectal cancer in an uncle. Colon nodule, nonbleeding hemorrhoids, polyp on review of 2019 colonoscopy. Colonoscopy Hx: 2009, 2010, 2013, 2019. Medical History: Reviewed Medications: Reviewed Surgical History: Reviewed Family history: Reviewed Allergies: Reviewed. NKDA Social History: Reviewed Code Status: DNR/DNI. Discussed with patient. In the event of a cardiac or pulmonary arrest he would want to be allowed to pass would not want resuscitation. Would want full measures outside of this, although he would not want to be on a breathing machine if his condition was critical or there is an unlikely chance of recovery. Allergies Allergy/AdvReac Type Severity Reaction Status Date / Time Nitrate Analogues Allergy Intermediate Epistaxis Verified 03/10/24 11:42 atorvastatin AdvReac Mild Sore tongue Verified 03/10/24 11:42 finasteride AdvReac Mild Groin pain Verified 03/10/24 11:42 pravastatin AdvReac Mild Sore tongue Verified 03/10/24 11:42 tamsulosin AdvReac Mild Fatigued Verified 03/10/24 11:42 CHLOROCARBON Allergy Intermediate Eye Uncoded 03/10/24 11:42 swelling (if inhaled) Home Medications Medication Instructions Recorded Confirmed Type ascorbic acid (vitamin C) 500 mg 250 mg PO BID 07/11/19 08/15/24 History tablet (Vitamin C) cholecalciferol (vitamin D3) 25 1,000 unit PO QAM 02/20/22 08/15/24 History mcg (1,000 unit) tablet (Vitamin D3) vitamin B complex (B 0.5 tab PO QAM 09/01/23 08/15/24 History Complex-Vitamin B12 tablet) cod liver oil 1 cap PO 2XWK 02/08/24 08/15/24 History metformin 500 mg tablet 500 mg PO BID #180 tabs 03/02/24 08/15/24 Rx metoprolol tartrate 50 mg tablet 50 mg PO BID #180 tabs 04/05/24 08/15/24 Rx apixaban 5 mg tablet (Eliquis) 5 mg PO BID #180 tabs 08/05/24 08/15/24 Rx rosuvastatin 5 mg tablet 5 mg PO HS #90 tabs 08/10/24 08/15/24 Rx Past Med/Surg History Problem List UGIB (upper gastrointestinal bleed) BPH with obstruction/lower urinary tract symptoms Atrial fibrillation with rapid ventricular response T2DM (type 2 diabetes mellitus) Mild nonproliferative diabetic retinopathy (~2023) Obesity Vitamin D deficiency (Acute) Fatty liver Hyperlipidemia Medical History Lyme disease COVID-19 virus infection Atrial fibrillation Taking Eliquis Follows with [facility] cardiology History of COVID-19 09/29/23 ([facility] "resolved" Hx of Lyme disease (~08/2023) treated Hyperlipidemia Hypertension Ventral hernia Type 2 diabetes mellitus with obesity NIDDM Sensorineural hearing loss (SNHL) of both ears Hiatal hernia Umbilical hernia Surgical History H/O ventral hernia repair (02/24/24) Robotic Assisted Laparoscopic Ventral Hernia Repair with Mesh and Umbilical Hernia Repair(Not Applicable) - Jostin Rothman DO, FACS History of nasal surgery (~10/2019) due to epistaxis Hx of colonoscopy with polypectomy History of cataract surgery History of surgical removal of ganglion cyst History of ear surgery perforated ear drum History of ankle surgery x3 b/l Family History Uncle Family hx of colon cancer Hypertension Colorectal cancer Mother Hearing loss Allergies Brother No problems noted. Uncle Heart disease Myocardial infarction H/O hemicolectomy Grandfather (Maternal) Stroke Other Cancer No family history of adverse response to anesthesia No family history of bleeding disorder Denies family history of Ovarian cancer Prostate cancer Diabetes Breast cancer Lung cancer Social History Smoking Status: Former smoker Tobacco Type: Cigarettes Age Started Using Tobacco: 18; Age Quit Using Tobacco: 31; packs per day: 1; Cigarettes Per Day: 1 PPD; Second Hand Exposure: No; Do You Dip or Chew Tobacco: No; Hx Alcohol Use: No Hx Substance Use: No Preferred Language: Egyptian Communication Ability: Effective Visual Impairment: Limited Hearing Ability: Use of Hearing Aid Broach Grinder Required: No Beliefs That Will Affect Care: None marital status: Current Living Situation: Spouse current occupational status: retired current occupation: [employer] How many Children do You have: 2 Feels Safe at Home: Yes Childhood Exposure to Second-Hand Smoke: Yes Diet: diabetic caffeine: Yes (coffee ) during the past year weight has: remained stable Dental Care, Regularly: Yes Physical Activity Frequency: Does not Exercise Seatbelt Use: always Sunscreen Use: No Assistive Devices: Glasses and Hearing Aid - Bilateral Physical Exam Physical Exam: General: A&Ox3. NAD. Cooperative. mild pallor. HEENT: Atraumatic, normocephalic. Vision and hearing intact Pulm: CTAB A&P. -wheezes, -rales, -rhonchi. Symmetrical chest rise. No increased work of breathing. No respiratory distress. Cardiac: RRR, -mrg. Radial pulses intact and symmetrical. Abdominal: Nontender, nondistended, soft. BS present. Results & Data Results & Data Vital Signs (Past 12 Hours) Vital Signs Temp Pulse Pulse Resp BP BP Pulse Ox 08/15/24 17:33 144 H 128/97 08/15/24 16:34 105 H 08/15/24 16:25 98 08/15/24 16:23 36.7 C 102 H 19 106/82 97 08/15/24 14:48 36.4 C 97 H 18 118/64 96 O2 Del Method 08/15/24 17:33 08/15/24 16:34 08/15/24 16:25 Room Air 08/15/24 16:23 Room Air 08/15/24 14:48 Room Air PG Care Time/CCT Total # of Minutes Spent Total Time Spent with Patient: Total time spent is greater than 50% in coordination of care (as documented) at patient's floor/unit and/or counseling patient: Coding Level of Care Code 81394 INT INP/OBS CARE 3/75MIN Diagnoses UGIB (upper gastrointestinal bleed) K92.2 Atrial fibrillation with rapid ventricular response I48.91 BPH with obstruction/lower urinary tract symptoms N40.1; N13.8 T2DM (type 2 diabetes mellitus) E11.9
[2024-08-15] MEDS: METOPROLOL TARTRATE 1 MG/ML VIAL IV PRN (17:55)
[2024-08-15] MEDS ORDERED: METOPROLOL TARTRATE 1 MG/ML VIAL IV PRN (18:26)
[2024-08-15] MEDS ORDERED: DEXTROSE 50% 50 ML SYRINGE IV PRN (18:34)
[2024-08-15] MEDS ORDERED: CARBOHYDRATES FOR HYPOGLYCEMIA PO PRN (18:34)
[2024-08-15] MEDS ORDERED: GLUCOSE 40% GEL 15 GM TUBE PO PRN (18:34)
[2024-08-15] MEDS ORDERED: GLUCAGON FOR INJ 1 MG VIAL SQ PRN (18:34)
[2024-08-15] MEDS ORDERED: GLUCOSE 10 TAB/TUBE PO PRN (18:34)
--- NOTE | 2024-08-15 18:42 | Electrocardiogram Report ---
Test Reason : Blood Pressure : */* mmHG Vent. Rate : 115 BPM Atrial Rate : 115 BPM P-R Int : 142 ms QRS Dur : 80 ms QT Int : 342 ms P-R-T Axes : 21 31 44 degrees QTcB Int : 473 ms Sinus tachycardia with Premature atrial complexes Otherwise normal ECG When compared with ECG of 01-Oct-2023 05:40, Vent. rate has increased by 41 bpm Confirmed by Palomo Acosta ([id number]) on 08/15/2024 6:41:39 PM Referred By: Confirmed By: Palomo Acosta
[2024-08-15] MEDS: MAGNESIUM SULFATE / D5W 1 GM/100 ML BAG IV ONE (18:48)
[2024-08-15] MEDS: PLASMA-LYTE A 500 ML IV ONE (19:00)
[2024-08-15] MEDS: PLASMA-LYTE A 1,000 ML IV SCH (20:37)
[2024-08-15] MEDS: INSULIN ASPART PER UNIT CHARGE SC SCH (21:35)
[2024-08-15] MEDS ORDERED: SODIUM CHLORIDE 0.9% 250 ML IV PRN (22:06)
[2024-08-15] MEDS ORDERED: ACETAMINOPHEN 325 MG TAB PO PRN (22:06)
--- OUTSIDE RECORDS SUMMARY | 2024-08-15 23:53 | External Medical Summary | Continuity of Care Document ---
Author Name Unknown Organization [facility] [address] [phone] Care Team Providers Care Course Developer Name Role Phone LaurokaryJose Primary Care Physician [phone] Encounter [facility] [id number] Date(s): 07/21/24 - 07/21/24 [facility] [address] [phone] Encounter Diagnosis Inflamed seborrheic keratosis(Discharge Diagnosis) - 07/21/24 History of basal cell cancer(Discharge Diagnosis) - 07/21/24 History of dysplastic nevus(Discharge Diagnosis) - 07/21/24 Discharge Disposition: Home or Self Care Attending Physician: TERESA Butts Dawn M Allergies, Adverse Reactions, Alerts No Known Allergies Assessment and Plan Extracted from: Title:Dermatology Office Visit Note Author:Chance rice PA-C, Dawn M Date:07/21/24 1.Inflamed seborrheic justa tosis chronic and worsening. INFLAMED SEBORRHEIC KERATOSES - discussed the likely benign and genetic nature of these lesions._ cryo x 2 2.History of basal cell cancer 3.History of dysplastic nevus Reviewed sun protection with SPF 30 or higher applied every 80 minutes and use of sun protective clothing and hat. Call with questions or concerns. Follow up 1 year. Patient in agreement with plan. Medications aspirin Start: 02/04/16 11:41:00 AM EST, 81 mg =, PO, Daily Start Date: 02/04/16 Status: Ordered Cortisporin Cream topical Start: 10/27/12 4:20:00 PM EST, See Instructions, 1 appl nostrils prn nose bleeding Start Date: 10/27/12 Status: Ordered Crestor Start: 02/17/19 11:41:00 AM EDT, 5 mg =, PO, Daily Start Date: 02/17/19 Status: Ordered Eliquis 5 mg oral tablet Start: 07/21/24 2:48:00 PM EDT, 1 tab, PO, bid Start Date: 07/21/24 Status: Ordered metFORMIN 500 mg oral tablet Start: 02/03/18 11:00:00 AM EST, 1 tab, PO, bid Start Date: 02/03/18 Status: Ordered Metoprolol Tartrate 50 mg oral tablet TAKE 1 TABLET BY MOUTH TWICE A DAY Start Date: 07/21/24 Status: Ordered Vitamin D3 Start: 07/16/22 11:36:00 AM EDT Start Date: 07/16/22 Status: Ordered Problem List Condition Confirmation Course Effective Dates Status Health St atus Informant Diabetes Confirmed Active Hiatal hernia Confirmed Active History of skin cancer 1 Confirmed Active Nail fungus Confirmed Active Dysplastic nevus Confirmed Active Pain Confirmed Active SK (seborrheic keratosis) Confirmed Active 1left upper arm 2001, unknown type Diagnosis Diagnosis Type Effective Dates Health Status Clinical Service Informant Inflamed seborrheic keratosis Discharge Diagnosis 07/21/24 History of basal cell cancer Discharge Diagnosis 07/21/24 History of dysplastic nevus Discharge Diagnosis 07/21/24 Procedures Procedure Date Related Diagnosis Body Site Status Excision 08/08/21 Completed Shave biopsy and cauterization of skin 07/11/21 Completed Shave biopsy and cauterization of skin 03/11/18 Completed Procedure 1 09/17/15 Completed Shave biopsy and cauterization of skin 08/26/13 Completed left ankle fracture repair 1988 Completed Colonoscopy 2 Completed 1right ankle compound fracture repair tibia/fibula 2012 Social History Social History Type Response Smoking Status Former Smoker, quit > 1 yr Sex Male Sex Representation Male (finding) Dermatology Outpatient Note * TERESA Butts, Yaneli Gregory: PERFORM Event Display: Dermatology Outpt Note Authored Date: [id number] Chief Complaint Yearly skin check: Mole right forearm change in shape and itchy History of Present Illness JOSSIE BRASWELL [id number] old patient returning today BUT NEW TO ME with a chief complaintof Yearly skin check: Mole right forearm change in shape and itchy. The patient feels the condition is stable. He denies bleeding, oozing, crusting or evolving lesions. Confirms itch. History [id number] excised Patient has a past personal history of skin cancer: BCC left posterior shoulder many years ago. Patient uses sunscreen. Takes care of house and property Review of Systems Denies fever, chills, sweats, night sweats, weight loss, headache, visual change, stomach upset diarrhea and joint pain. Physical Exam _Constitutional: Generally well appearing, well developed. Appears stated age. Eyes: Conjunctivae and lids without noted inflammation, lesion, mass, deformity or drainage. Cardiovascular: Swelling of the lower extremities not noted. Extremities pink, warm and dry. Extremities: Digits and nails without clubbing, cyanosis, petechiae, signs of ischemia, infectionor inflammation. Neurological / Psychiatric: Oriented to person, place and time. Appropriate mood and affect. No notable depression, anxiety or agitation. Complete skin exam was performed today including head, neck, chest, axillae, abdomen, back, bilateral upper and bilateral lower extremities. Palpation of the scalp, inspection of hair of scalp, eyebrows and finger and toenails was performed. 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 PROCEDURE: Cryotherapy performed to inflamed seborrheic keratoses x 2 following verbal consent, time out and allowing time for questions. Alternative therapies were discussed, and education on wound healing, risk of thermal injury, dyspigmentation, infection and scar formation were performed. Wound care in struction was provided. Patient was without concerns after questions answered after the procedure. Assessment/Plan 1.Inflamed seborrheic keratosis chronic and worsening. INFLAMED SEBORRHEIC KERATOSES - discussed the likely benign and genetic nature of these lesions._ cryo x 2 2.History of basal cell cancer 3.History of dysplastic nevus Reviewed sun protection with SPF 30 or higher applied every 80 minutes and use of sun protective clothing and hat. Call with questions or concerns. Follow up 1 year. Patient in agreement with plan. Problem List/Past Medical History Ongoing Diabetes Dysplastic nevus Hiatal hernia History of skin cancer Nail fungus Pain SK (seborrheic keratosis) Procedure/Surgical History Excision| Service Date: 08/08/2021have biopsy and cauterization of skin| Service Date: 07/11/2021have biopsy and cauterization of skin| Service Date: 03/11/2018Procedure| Service Date: 09/17/2015Shave biopsy and cauterization of skin| Service Date: 08/26/2013left ankle fracture repair| Service Date: 1988Colonoscopy Medications apixaban(Eliquis 5 mg oral tablet), 5 mg= 1 tab, PO, bid aspirin, 81 mg, PO, Daily cholecalciferol(Vitamin D3) hydrocortisone/neomycin/polymyxin B topical(Cortisporin Cream topical), See Instructions metFORMIN(metFORMIN 500 mg oral tablet), 500 mg= 1 tab, PO, bid metoprolol(Metoprolol Tartrate 50 mg oral tablet) rosuvastatin(Crestor), 5 mg, PO, Daily Allergies NKA Social History Smoking Status Former Smoker, quit > 1 yr Electronic Signature on File Electronically Reviewed/Signed by: RAJWINDER Brush Author Signature Dt/Tm:07/21/2024 03:09 PM Department of Family Medicine Department of Dermatology DMS Patient Care team information Care Team Personnel Name: DO Hernandez Brian R Position: Referring Member Role: Primary Care Provider Address: [facility] [address] Care Team Related Persons Name: CLAUDIO BRASWELL Name: GSUTAVO BRASWELL"
[2024-08-16] MEDS: METOPROLOL TARTRATE 1 MG/ML VIAL IV SCH (01:44)
[2024-08-16] MEDS: INSULIN ASPART PER UNIT CHARGE SC SCH ×2 (06:13→17:26)
[2024-08-16 07:43] LABS: Appearance Urine Clear (Clear); Bacteria Urine Automated 2+ (None Seen); Bilirubin Urine Negative (Negative); Blood Urine Trace (Negative); Cast Urine Automated 0-2 /lpf (0-2); Color Urine Yellow; Epithelial Cell Urine Auto 0-2 /hpf (0-2); Glucose Urine UA Negative (Negative); Ketones Urine Negative (Negative); Leukocyte Esterase Urine 2+ (Negative); Nitrite Urine Positive (Negative); Protein Urine Negative (Negative); RBC Urine Automated 0-2 /hpf (0-2); Specific Gravity Urine 1.027 (1.000-1.030); Urobilinogen Urine Negative (Negative); WBC Urine Automated >50 /hpf (0-5)
--- NOTE | 2024-08-16 08:21 | Electrocardiogram Report ---
Test Reason : Blood Pressure : */* mmHG Vent. Rate : 117 BPM Atrial Rate : 293 BPM P-R Int : * ms QRS Dur : 86 ms QT Int : 378 ms P-R-T Axes : * 49 44 degrees QTcB Int : 527 ms Atrial flutter with variable A-V block Prolonged QT Abnormal ECG When compared with ECG of 15-Aug-2024 17:28, HR has decreased by 17 bpm Otherwise no significant change Confirmed by Gómez Chavez ([id number]) on 08/16/2024 8:20:43 AM Referred By: REFERRED SELF Confirmed By: Gómez Chavez
[2024-08-16 08:27] LABS: Hematocrit (blood only) 29.3 % (42.0-52.0); Hemoglobin 9.4 g/dl (14.0-18.0); Mean Corpuscular Hgb Conc 32.1 g/dL (32.0-36.0); Mean Corpuscular Volume 90.4 fL (80.0-100.0); Mean Platelet Volume 9.4 fL (9.4-12.4); Platelet Count 289 K/uL (130-400); RDW Coefficient of Variation 13.1 % (11.5-14.5); RDW Standard Deviation 43.6 fL (36.4-46.3); Red Blood Count 3.24 M/uL (4.70-6.10); White Blood Count 9.13 K/ul (4.8-10.8)
[2024-08-16 08:43] LABS: Basophils # (auto) 0.03 K/uL (0.00-0.20); Basophils % (auto) 0.3 %; Eosinophils # (auto) 0.15 K/uL (0.00-0.50); Eosinophils % (auto) 1.6 %; Immature Granulocytes # (auto) 0.12 K/uL (0.01-0.20); Immature Granulocytes % (auto) 1.3 %; Lymphocytes # (auto) 2.52 K/uL (1.20-3.40); Lymphocytes % (auto) 27.6 %; Monocytes # (auto) 0.69 K/uL (0.11-0.59); Monocytes % (auto) 7.6 %; Neutrophils # (auto) 5.62 K/uL (1.40-6.50); Neutrophils % (auto) 61.6 %
[2024-08-16 08:48] LABS: Creatinine Clr Calc Pharmacy 74.8 ml/min; Est GFR (African American) 90.3 ml/min; Est GFR (Non-African American) 77.9 ml/min; Potassium 4.1 mmol/L (3.5-5.1)
--- NOTE | 2024-08-16 09:31 | Electrocardiogram Report ---
Test Reason : Blood Pressure : */* mmHG Vent. Rate : 134 BPM Atrial Rate : 375 BPM P-R Int : * ms QRS Dur : 86 ms QT Int : 330 ms P-R-T Axes : 108 21 -2 degrees QTcB Int : 492 ms Atrial flutter with variable A-V block Abnormal ECG When compared with ECG of 15-Aug-2024 15:52, Atrial flutter has replaced Sinus rhythm HR has increased by 19 bpm Confirmed by Gómez Chavez ([id number]) on 08/16/2024 9:31:34 AM Referred By: REFERRED SELF Confirmed By: Gómez Chavez
--- NOTE | 2024-08-16 11:19 | Gastrointestinal Consultation ---
Date of Consultation August 16, 2024 Assessment & Plan (1) Anemia associated with acute blood loss: -Clear liquids today; bowel prep ordered; NPO after midnight -EGD/Colonoscopy on 08/17/24 -Continue to hold Eliquis/ASA and monitor H/H -Continue to monitor for ongoing GI bleeding Supervising Physician Co-Signing Physician Notes I saw and examined this patient with our nurse practitioner and agree with her assessment and plan. Despite history of possible melena and hematochezia patient denies any significant abdominal symptoms or history of any significant GI pathology. He does have a history of benign colon polyps and has had multiple colonoscopies in the past the last one approximately 5 years ago. However there has been significant blood loss with a hemoglobin at 9.4. In light of this we will proceed with endoscopy and colonoscopy to further evaluate the etiology of his blood loss. Continue to hold his Eliquis until we complete her procedures tomorrow. History of Present Illness Reason for Consultation: Anemia Attending Physician: Alli Ann History of Present Illness Patient is a 79 yo male who presented to the ED with PMH of BPH, A fib, DM2. He came into the ED with dark bowel movements x 4 days and then subsequent bright red blood passed in stool. He denies any abdominal pain, heartburn, reflux, chest pain. He notes he was dizzy & lightheaded for some time. He denies NSAID use. He does not drink alcohol by his reports. He is on Eliquis, but has not taken this since 08/13/24. In the ED, he was noted to have an H/H of 12.1/36.4 and this declined to 9.4/29.3. BUN was 48 and is now 31. He is on a PPI drip at present. Last colonoscopy was in 2019 and was noted to have tubular adenomas & internal hemorrhoids. De is a 79-year-old male with a past medical history of BPH with LUTS, A- fib, type II DM, DM with mild retinopathy presents to the ER with hematochezia and A-fib RVR. Patient was in sinus on arrival, converted to A-fib while in the ER. He has an uncle with colon cancer. No other pertinent medical history. Allergies Allergy/AdvReac Type Severity Reaction Status Date / Time Nitrate Analogues Allergy Intermediate Epistaxis Verified 03/10/24 11:42 atorvastatin AdvReac Mild Sore tongue Verified 03/10/24 11:42 finasteride AdvReac Mild Groin pain Verified 03/10/24 11:42 pravastatin AdvReac Mild Sore tongue Verified 03/10/24 11:42 tamsulosin AdvReac Mild Fatigued Verified 03/10/24 11:42 CHLOROCARBON Allergy Intermediate Eye Uncoded 03/10/24 11:42 swelling (if inhaled) Home Medications Medication Instructions Recorded Confirmed Type ascorbic acid (vitamin C) 500 mg 250 mg PO BID 07/11/19 08/15/24 History tablet (Vitamin C) cholecalciferol (vitamin D3) 25 1,000 unit PO QAM 02/20/22 08/15/24 History mcg (1,000 unit) tablet (Vitamin D3) vitamin B complex (B 0.5 tab PO QAM 09/01/23 08/15/24 History Complex-Vitamin B12 tablet) cod liver oil 1 cap PO 2XWK 02/08/24 08/15/24 History metformin 500 mg tablet 500 mg PO BID #180 tabs 03/02/24 08/15/24 Rx metoprolol tartrate 50 mg tablet 50 mg PO BID #180 tabs 04/05/24 08/15/24 Rx apixaban 5 mg tablet (Eliquis) 5 mg PO BID #180 tabs 08/05/24 08/15/24 Rx rosuvastatin 5 mg tablet 5 mg PO HS #90 tabs 08/10/24 08/15/24 Rx Patient History Medical History Lyme disease COVID-19 virus infection Atrial fibrillation Taking Eliquis Follows with [facility] cardiology History of COVID-19 09/29/23 ([facility])- "resolved" Hx of Lyme disease (~08/2023) treated Hyperlipidemia Hypertension Ventral hernia Type 2 diabetes mellitus with obesity NIDDM Sensorineural hearing loss (SNHL) of both ears Hiatal hernia Umbilical hernia Surgical History H/O ventral hernia repair (02/24/24) Robotic Assisted Laparoscopic Ventral Hernia Repair with Mesh and Umbilical Hernia Repair(Not Applicable) - Jostin Rothman DO, FACS History of nasal surgery (~10/2019) due to epistaxis Hx of colonoscopy with polypectomy History of cataract surgery History of surgical removal of ganglion cyst History of ear surgery perforated ear drum History of ankle surgery x3 b/l Family History Uncle Family hx of colon cancer Hypertension Colorectal cancer Mother Hearing loss Allergies Brother No problems noted. Uncle Heart disease Myocardial infarction H/O hemicolectomy Grandfather (Maternal) Stroke Other Cancer No family history of adverse response to anesthesia No family history of bleeding disorder Denies family history of Ovarian cancer Prostate cancer Diabetes Breast cancer Lung cancer Social History Smoking Status: Former smoker Tobacco Type: Cigarettes Age Started Using Tobacco: 18; Age Quit Using Tobacco: 31; packs per day: 1; Cigarettes Per Day: 1 PPD; Second Hand Exposure: No; Do You Dip or Chew Tobacco: No; Hx Alcohol Use: No Hx Substance Use: No Preferred Language: Sami Communication Ability: Effective Visual Impairment: Limited Hearing Ability: Use of Hearing Aid Modeling Analyst Required: No Beliefs That Will Affect Care: None marital status: Current Living Situation: Spouse current occupational status: retired current occupation: [employer] How many Children do You have: 2 Other Information That Helps Us Care for You: No Feels Safe at Home: Yes Safety Concerns: Feels Safe At This Time Childhood Exposure to Second-Hand Smoke: Yes Diet: diabetic caffeine: Yes (coffee ) during the past year weight has: remained stable Dental Care, Regularly: Yes Physical Activity Frequency: Does not Exercise Seatbelt Use: always Sunscreen Use: No Assistive Devices: None Review of Systems Constitutional: no fever and no chills Respiratory: no cough and no dyspnea Gastrointestinal: + blood in stools and + melena; no abdom inal pain, no coffee ground emesis and no change in bowel habits Psychiatric: no problem reported Physical Exam Constitutional: well developed Respiratory: normal respiratory effort Gastrointestinal (Abdomen): normal bowel sounds, soft, nontender, no hepatosplenomegaly Psychiatric: Orientation: alert and oriented x 3 Results & Data Vital Signs (Past 12 Hours) Vital Signs Temp Pulse Pulse Resp BP BP Pulse Ox 08/16/24 08:34 08/16/24 07:24 36.7 C 77 20 119/66 96 08/16/24 06:35 64 08/16/24 06:20 64 106/64 08/16/24 06:13 85 106/64 08/16/24 02:50 36.8 C 78 18 106/67 95 08/16/24 01:59 82 08/16/24 01:44 90 129/71 08/16/24 01:15 90 08/16/24 01:00 36.9 C 81 18 129/71 96 08/16/24 00:24 91 H 19 96 08/16/24 00:00 88 19 134/82 99 08/15/24 23:32 141/95 H O2 Del Method 08/16/24 08:34 Room Air 08/16/24 07:24 Room Air 08/16/24 06:35 08/16/24 06:20 08/16/24 06:13 08/16/24 02:50 Room Air 08/16/24 01:59 08/16/24 01:44 08/16/24 01:15 08/16/24 01:00 Room Air 08/16/24 00:24 08/16/24 00:00 Room Air 08/15/24 23:32 Laboratory Results Laboratory Results - last 48 hr 08/15/24 08/15/24 08/15/24 15:48 15:52 19:04 WBC 12.26 H RBC 4.10 L Hgb 12.1 L Hct 36.4 L MCV 88.8 MCH 29.5 MCHC 33.2 RDW Std Deviation 41.9 RDW Coeff of Wil 13.0 Plt Count 325 MPV 9.9 Immature Gran % (Auto) Neut % (Auto) Lymph % (Auto) [place] % (Auto) Eos % (Auto) Baso % (Auto) Neut # (Auto) Lymph # (Auto) [place] # (Auto) Eos # (Auto) Baso # (Auto) Immature Gran # (Auto) PT 12.0 INR 1.1 APTT 23 PTT Ratio 0.9 Sodium 138 Potassium 4.1 Chloride 103 Carbon Dioxide 28 Anion Gap 7 BUN 48 H Creatinine 1.01 Est Cr Clr Drug Dosing 70.2 Est GFR ( Amer) 82.8 Est GFR (Non-Af Amer) 71.4 BUN/Creatinine Ratio 47.5 H Glucose 155 H POC Glucose 161 H Calcium 8.9 Magnesium 2.0 Total Bilirubin 0.6 AST 22 ALT 47 Alkaline Phosphatase 47 Troponin I High Sens 10.1 Total Protein 6.8 Albumin 3.7 Globulin 3.1 Albumin/Globulin Ratio 1.2 Urine Color Urine Appearance Urine pH Ur Specific [place] Urine Protein Urine Glucose (UA) Urine Ketones Urine Blood Urine Nitrite Urine Bilirubin Urine Urobilinogen Ur Leukocyte Esterase Urine WBC (Auto) Urine RBC (Auto) U Hyaline Cast (Auto) U Epithel Cells (Auto) Urine Bacteria (Auto) Blood Type O Positive Blood Type Recheck Antibody Screen NEGATIVE 08/15/24 08/15/24 08/16/24 21:25 22:55 06:09 WBC RBC Hgb Hct MCV MCH MCHC RDW Std Deviation RDW Coeff of Wil Plt Count MPV Immature Gran % (Auto) Neut % (Auto) Lymph % (Auto) [place] % (Auto) Eos % (Auto) Baso % (Auto) Neut # (Auto) Lymph # (Auto) [place] # (Auto) Eos # (Auto) Baso # (Auto) Immature Gran # (Auto) PT INR APTT PTT Ratio Sodium Potassium Chloride Carbon Dioxide Anion Gap BUN Creatinine Est Cr Clr Drug Dosing Est GFR ( Amer) Est GFR (Non-Af Amer) BUN/Creatinine Ratio Glucose POC Glucose 155 H 129 H Calcium Magnesium Total Bilirubin AST ALT Alkaline Phosphatase Troponin I High Sens Total Protein Albumin Globulin Albumin/Globulin Ratio Urine Color Urine Appearance Urine pH Ur Specific [place] Urine Protein Urine Glucose (UA) Urine Ketones Urine Blood Urine Nitrite Urine Bilirubin Urine Urobilinogen Ur Leukocyte Esterase Urine WBC (Auto) Urine RBC (Auto) U Hyaline Cast (Auto) U Epithel Cells (Auto) Urine Bacteria (Auto) Blood Type Blood Type Recheck O Positive Antibody Screen 08/16/24 08/16/24 08/16/24 06:22 08:10 12:29 WBC 9.13 RBC 3.24 L Hgb 9.4 L Hct 29.3 L MCV 90.4 MCH 29.0 MCHC 32.1 RDW Std Deviation 43.6 RDW Coeff of Wil 13.1 Plt Count 289 MPV 9.4 Immature Gran % (Auto) 1.3 Neut % (Auto) 61.6 Lymph % (Auto) 27.6 [place] % (Auto) 7.6 Eos % (Auto) 1.6 Baso % (Auto) 0.3 Neut # (Auto) 5.62 Lymph # (Auto) 2.52 [place] # (Auto) 0.69 H Eos # (Auto) 0.15 Baso # (Auto) 0.03 Immature Gran # (Auto) 0.12 PT INR APTT PTT Ratio Sodium 142 Potassium 4.1 Chloride 106 Carbon Dioxide 32 Anion Gap 4 BUN 31 H Creatinine 0.94 Est Cr Clr Drug Dosing 74.8 Est GFR ( Amer) 90.3 Est GFR (Non-Af Amer) 77.9 BUN/Creatinine Ratio 33.0 H Glucose 138 H POC Glucose 164 H Calcium 8.0 L Magnesium Total Bilirubin AST ALT Alkaline Phosphatase Troponin I High Sens Total Protein Albumin Globulin Albumin/Globulin Ratio Urine Color Yellow Urine Appearance Clear Urine pH 5.0 Ur Specific [place] 1.027 Urine Protein Negative Urine Glucose (UA) Negative Urine Ketones Negative Urine Blood Trace H Urine Nitrite Positive A Urine Bilirubin Negative Urine Urobilinogen Negative Ur Leukocyte Esterase 2+ H Urine WBC (Auto) >50 H Urine RBC (Auto) 0-2 U Hyaline Cast (Auto) 0-2 U Epithel Cells (Auto) 0-2 Urine Bacteria (Auto) 2+ H Blood Type Blood Type Recheck Antibody Screen PG Care Time/CCT Total # of Minutes Spent Total Time Spent with Patient: Total time spent is greater than 50% in coordination of care (as documented) at patient's floor/unit and/or counseling patient: Coding Level of Care Code 95769 INT INP/OBS CARE MIN Diagnoses Anemia associated with acute blood loss D62
[2024-08-16 14:58] LABS: Hematocrit (blood only) 27.1 % (42.0-52.0); Hemoglobin 8.8 g/dl (14.0-18.0)
--- NOTE | 2024-08-16 17:56 | Hospitalist Progress Note ---
Date of Service August 16, 2024 Assessment & Plan (1) UGIB (upper gastrointestinal bleed): Plan: GI bleed Upper GI bleed with melena for 3-4 days, now with increased bright red blood per rectum BP normal. HR transiently elevated with Afib RVR, converted back to NSR with mild tachycardia post MTP x2. 1L Plasma-Lyte ordered +IVFM Hemoglobin baseline approximately 15, hemoglobin on admission 12.1. BUN is acutely elevated consistent with upper GI bleed. He has no epigastric tenderness, does not use NSAIDs, is on Eliquis for A-fib prophylaxis. Blood consent signed, 2 units matched and held. Hgb trended. PPI bolus and drip ordered while patient was in the ER. gtt continued GI consulted. No indication for emergent endoscopy at time of assessment Last colonoscopy 2019 reviewed. This showed submucosal descending colon nodule, diverticulosis without diverticulitis, nonbleeding internal hemorrhoids at that time. Patient does have a history of colorectal cancer in an uncle. History is more consistent with upper GI bleed than lower. He reports he has never had an upper endoscopy no H and P states patient received rocephin, however this is not reported in the medication history -Hemoglobin stavle on 05/16 Patient will get colonscopy on 05/17 (2) Atrial fibrillation with rapid ventricular response: Plan: A-fib with RVR Sinus on arrival to ER, converted to A-fib RVR, converted back to sinus after 2 doses of IV metoprolol Patient is on apixaban for stroke prophylaxis, this is held for acute GI bleeding Metoprolol PO converted to IV with NPO. 5mg IV q5m x3 doses PRN available on- call if needed for RVR Goal mag 2.0, 1 g given when patient was in A-fib RVR with mag pending. Follow on PCU No chest pain or chest pressure, high sensitive troponin is normal (3) BPH with obstruction/lower urinary tract symptoms: Plan: Bladder scan every shift (4) T2DM (type 2 diabetes mellitus): Plan: N.p.o. on admission Goal BSG [id number] Conservative SSI placed while n.p.o. DVT prophylaxis: Pharmacoprophylaxis held due to upper GI bleed Disposition: PCU CODE STATUS: DNR/DNI, discussed with patient Diet: N.p.o., IVFM Admission and Anticipated Discharge Date Admission Date: August 15, 2024 Subjective 79 yo male reports no new symptoms. Review of Systems Review of Systems: All systems reviewed & are unremarkable except as noted in HPI & below Physical Exam Physical Exam: General: A&Ox3. NAD. Cooperative. mild pallor. HEENT: Atraumatic, normocephalic. Vision and hearing intact Pulm: CTAB A&P. -wheezes, -rales, -rhonchi. Symmetrical chest rise. No increased work of breathing. No respiratory distress. Cardiac: RRR, -mrg. Radial pulses intact and symmetrical. Abdominal: Nontender, nondistended, soft. BS present. Results & Data Results & Data Vital Signs (Past 12 Hours) Vital Signs Temp Pulse Pulse Resp BP BP Pulse Ox 08/16/24 16:54 91 H 08/16/24 14:06 94 H 08/16/24 13:10 78 108/70 08/16/24 12:55 81 110/68 08/16/24 12:54 37.0 C 81 15 110/68 96 08/16/24 09:30 37.1 C 61 17 139/74 94 08/16/24 08:34 08/16/24 07:24 36.7 C 77 20 119/66 96 08/16/24 06:35 64 08/16/24 06:20 64 106/64 08/16/24 06:13 85 106/64 O2 Del Method 08/16/24 16:54 08/16/24 14:06 08/16/24 13:10 08/16/24 12:55 08/16/24 12:54 Room Air 08/16/24 09:30 Room Air 08/16/24 08:34 Room Air 08/16/24 07:24 Room Air 08/16/24 06:35 08/16/24 06:20 08/16/24 06:13 PG Care Time/CCT Total # of Minutes Spent Total Time Spent with Patient: Total time spent is greater than 50% in coordination of care (as documented) at patient's floor/unit and/or counseling patient: Coding Level of Care Code 96755 SUB INP/OBS CARE 2/35MIN Diagnoses UGIB (upper gastrointestinal bleed) K92.2 Atrial fibrillation with rapid ventricular response I48.91 BPH with obstruction/lower urinary tract symptoms N40.1; N13.8 T2DM (type 2 diabetes mellitus) E11.9
[2024-08-16] MEDS ORDERED: LAVAGE SOLUTION 4000ML PO SCH (18:00)
[2024-08-16 21:24] LABS: Hematocrit (blood only) 27.9 % (42.0-52.0); Hemoglobin 9.4 g/dl (14.0-18.0)
[2024-08-17 04:08] LABS: Calcium 7.7 mg/dl (8.6-10.3); Potassium 3.6 mmol/L (3.5-5.1)
[2024-08-17 04:14] LABS: BUN Creatinine Ratio 19.5 (10-20); Creatinine Clr Calc Pharmacy 80.8 ml/min; Est GFR (African American) 96.5 ml/min; Est GFR (Non-African American) 83.2 ml/min
[2024-08-17 04:21] LABS: Basophils # (auto) 0.04 K/uL (0.00-0.20); Basophils % (auto) 0.4 %; Eosinophils # (auto) 0.21 K/uL (0.00-0.50); Eosinophils % (auto) 1.9 %; Hematocrit (blood only) 28.6 % (42.0-52.0); Hemoglobin 9.2 g/dl (14.0-18.0); Immature Granulocytes # (auto) 0.27 K/uL (0.01-0.20); Immature Granulocytes % (auto) 2.5 %; Lymphocytes # (auto) 2.85 K/uL (1.20-3.40); Lymphocytes % (auto) 26.2 %; Mean Corpuscular Hemoglobin 29.5 pg (25.0-34.0); Mean Corpuscular Hgb Conc 32.2 g/dL (32.0-36.0); Mean Corpuscular Volume 91.7 fL (80.0-100.0); Mean Platelet Volume 9.5 fL (9.4-12.4); Monocytes # (auto) 0.71 K/uL (0.11-0.59); Monocytes % (auto) 6.5 %; Neutrophils # (auto) 6.78 K/uL (1.40-6.50); Neutrophils % (auto) 62.5 %; Nucleated RBC # (auto) 0.04 K/uL (0.00-0.12); Nucleated RBC % (auto) 0.4 %; Platelet Count 333 K/uL (130-400); RDW Coefficient of Variation 13.3 % (11.5-14.5); RDW Standard Deviation 43.6 fL (36.4-46.3); Red Blood Count 3.12 M/uL (4.70-6.10); White Blood Count 10.86 K/ul (4.8-10.8)
[2024-08-17] MEDS: INSULIN ASPART PER UNIT CHARGE SC SCH ×2 (06:15→16:38)
--- NOTE | 2024-08-17 07:52 | Gastroenterology Progress Note ---
Date of Service August 17, 2024 Assessment & Plan (1) Anemia associated with acute blood loss: Plan: Hemodynamically stable. No overt bleeding. Tolerated bowel prep well. Eliquis has been on hold. In addition patient related to me that he had stopped his Eliquis several days ago because of the potential bleeding. Will proceed with endoscopy and colonoscopy today. Admission and Anticipated Discharge Date Admission Date: August 15, 2024 Subjective Resting comfortably denies any shortness of breath chest pain or abdominal pain. Denies any overt bleeding. Physical Exam Physical Exam: No acute distress Respiratory rate regular Cardiac rhythm regular Abdomen soft nontender Results & Data Results & Data Vital Signs (Past 12 Hours) Vital Signs Temp Pulse Pulse Resp BP BP Pulse Ox 08/17/24 07:43 36.8 C 76 18 114/67 97 08/17/24 06:20 74 08/17/24 06:14 87 129/76 08/17/24 06:08 87 129/76 08/17/24 02:45 36.7 C 73 18 115/68 94 08/17/24 00:46 73 118/68 08/17/24 00:32 84 127/70 08/17/24 00:20 36.8 C 84 24 129/72 96 08/17/24 00:00 83 08/16/24 20:34 84 102/62 O2 Del Method 08/17/24 07:43 Room Air 08/17/24 06:20 08/17/24 06:14 08/17/24 06:08 08/17/24 02:45 Room Air 08/17/24 00:46 08/17/24 00:32 08/17/24 00:20 Room Air 08/17/24 00:00 08/16/24 20:34 Laboratory Results Laboratory Results - last 48 hr 08/15/24 08/15/24 08/15/24 15:48 15:52 19:04 WBC 12.26 H RBC 4.10 L Hgb 12.1 L Hct 36.4 L MCV 88.8 MCH 29.5 MCHC 33.2 RDW Std Deviation 41.9 RDW Coeff of Wil 13.0 Plt Count 325 MPV 9.9 Immature Gran % (Auto) Neut % (Auto) Lymph % (Auto) [place] % (Auto) Eos % (Auto) Baso % (Auto) Neut # (Auto) Lymph # (Auto) [place] # (Auto) Eos # (Auto) Baso # (Auto) Immature Gran # (Auto) Absolute Nucleated RBC Nucleated RBC % (auto) PT 12.0 INR 1.1 APTT 23 PTT Ratio 0.9 Sodium 138 Potassium 4.1 Chloride 103 Carbon Dioxide 28 Anion Gap 7 BUN 48 H Creatinine 1.01 Est Cr Clr Drug Dosing 70.2 Est GFR ( Amer) 82.8 Est GFR (Non-Af Amer) 71.4 BUN/Creatinine Ratio 47.5 H Glucose 155 H POC Glucose 161 H Calcium 8.9 Magnesium 2.0 Total Bilirubin 0.6 AST 22 ALT 47 Alkaline Phosphatase 47 Troponin I High Sens 10.1 Total Protein 6.8 Albumin 3.7 Globulin 3.1 Albumin/Globulin Ratio 1.2 Urine Color Urine Appearance Urine pH Ur Specific [place] Urine Protein Urine Glucose (UA) Urine Ketones Urine Blood Urine Nitrite Urine Bilirubin Urine Urobilinogen Ur Leukocyte Esterase Urine WBC (Auto) Urine RBC (Auto) U Hyaline Cast (Auto) U Epithel Cells (Auto) Urine Bacteria (Auto) Stool Occult Bld Scrn Blood Type O Positive Blood Type Recheck Antibody Screen NEGATIVE Crossmatch See Detail 08/15/24 08/15/24 08/16/24 21:25 22:55 06:09 WBC RBC Hgb Hct MCV MCH MCHC RDW Std Deviation RDW Coeff of Wil Plt Count MPV Immature Gran % (Auto) Neut % (Auto) Lymph % (Auto) [place] % (Auto) Eos % (Auto) Baso % (Auto) Neut # (Auto) Lymph # (Auto) [place] # (Auto) Eos # (Auto) Baso # (Auto) Immature Gran # (Auto) Absolute Nucleated RBC Nucleated RBC % (auto) PT INR APTT PTT Ratio Sodium Potassium Chloride Carbon Dioxide Anion Gap BUN Creatinine Est Cr Clr Drug Dosing Est GFR ( Amer) Est GFR (Non-Af Amer) BUN/Creatinine Ratio Glucose POC Glucose 155 H 129 H Calcium Magnesium Total Bilirubin AST ALT Alkaline Phosphatase Troponin I High Sens Total Protein Albumin Globulin Albumin/Globulin Ratio Urine Color Urine Appearance Urine pH Ur Specific [place] Urine Protein Urine Glucose (UA) Urine Ketones Urine Blood Urine Nitrite Urine Bilirubin Urine Urobilinogen Ur Leukocyte Esterase Urine WBC (Auto) Urine RBC (Auto) U Hyaline Cast (Auto) U Epithel Cells (Auto) Urine Bacteria (Auto) Stool Occult Bld Scrn Blood Type Blood Type Recheck O Positive Antibody Screen Crossmatch 08/16/24 08/16/24 08/16/24 06:22 08:10 12:29 WBC 9.13 RBC 3.24 L Hgb 9.4 L Hct 29.3 L MCV 90.4 MCH 29.0 MCHC 32.1 RDW Std Deviation 43.6 RDW Coeff of Wil 13.1 Plt Count 289 MPV 9.4 Immature Gran % (Auto) 1.3 Neut % (Auto) 61.6 Lymph % (Auto) 27.6 [place] % (Auto) 7.6 Eos % (Auto) 1.6 Baso % (Auto) 0.3 Neut # (Auto) 5.62 Lymph # (Auto) 2.52 [place] # (Auto) 0.69 H Eos # (Auto) 0.15 Baso # (Auto) 0.03 Immature Gran # (Auto) 0.12 Absolute Nucleated RBC Nucleated RBC % (auto) PT INR APTT PTT Ratio Sodium 142 Potassium 4.1 Chloride 106 Carbon Dioxide 32 Anion Gap 4 BUN 31 H Creatinine 0.94 Est Cr Clr Drug Dosing 74.8 Est GFR ( Amer) 90.3 Est GFR (Non-Af Amer) 77.9 BUN/Creatinine Ratio 33.0 H Glucose 138 H POC Glucose 164 H Calcium 8.0 L Magnesium Total Bilirubin AST ALT Alkaline Phosphatase Troponin I High Sens Total Protein Albumin Globulin Albumin/Globulin Ratio Urine Color Yellow Urine Appearance Clear Urine pH 5.0 Ur Specific [place] 1.027 Urine Protein Negative Urine Glucose (UA) Negative Urine Ketones Negative Urine Blood Trace H Urine Nitrite Positive A Urine Bilirubin Negative Urine Urobilinogen Negative Ur Leukocyte Esterase 2+ H Urine WBC (Auto) >50 H Urine RBC (Auto) 0-2 U Hyaline Cast (Auto) 0-2 U Epithel Cells (Auto) 0-2 Urine Bacteria (Auto) 2+ H Stool Occult Bld Scrn Blood Type Blood Type Recheck Antibody Screen Crossmatch 08/16/24 08/16/24 08/16/24 14:39 16:26 20:08 WBC RBC Hgb 8.8 L Hct 27.1 L MCV MCH MCHC RDW Std Deviation RDW Coeff of Wil Plt Count MPV Immature Gran % (Auto) Neut % (Auto) Lymph % (Auto) [place] % (Auto) Eos % (Auto) Baso % (Auto) Neut # (Auto) Lymph # (Auto) [place] # (Auto) Eos # (Auto) Baso # (Auto) Immature Gran # (Auto) Absolute Nucleated RBC Nucleated RBC % (auto) PT INR APTT PTT Ratio Sodium Potassium Chloride Carbon Dioxide Anion Gap BUN Creatinine Est Cr Clr Drug Dosing Est GFR ( Amer) Est GFR (Non-Af Amer) BUN/Creatinine Ratio Glucose POC Glucose 232 H 154 H Calcium Magnesium Total Bilirubin AST ALT Alkaline Phosphatase Troponin I High Sens Total Protein Albumin Globulin Albumin/Globulin Ratio Urine Color Urine Appearance Urine pH Ur Specific [place] Urine Protein Urine Glucose (UA) Urine Ketones Urine Blood Urine Nitrite Urine Bilirubin Urine Urobilinogen Ur Leukocyte Esterase Urine WBC (Auto) Urine RBC (Auto) U Hyaline Cast (Auto) U Epithel Cells (Auto) Urine Bacteria (Auto) Stool Occult Bld Scrn Blood Type Blood Type Recheck Antibody Screen Crossmatch 08/16/24 08/16/24 08/17/24 20:50 21:07 03:46 WBC RBC Hgb 9.4 L Hct 27.9 L MCV MCH MCHC RDW Std Deviation RDW Coeff of Wil Plt Count MPV Immature Gran % (Auto) Neut % (Auto) Lymph % (Auto) [place] % (Auto) Eos % (Auto) Baso % (Auto) Neut # (Auto) Lymph # (Auto) [place] # (Auto) Eos # (Auto) Baso # (Auto) Immature Gran # (Auto) Absolute Nucleated RBC Nucleated RBC % (auto) PT INR APTT PTT Ratio Sodium 139 Potassium 3.6 Chloride 106 Carbon Dioxide 26 Anion Gap 7 BUN 17 Creatinine 0.87 Est Cr Clr Drug Dosing 80.8 Est GFR ( Amer) 96.5 Est GFR (Non-Af Amer) 83.2 BUN/Creatinine Ratio 19.5 Glucose 95 POC Glucose Calcium 7.7 L Magnesium Total Bilirubin AST ALT Alkaline Phosphatase Troponin I High Sens Total Protein Albumin Globulin Albumin/Globulin Ratio Urine Color Urine Appearance Urine pH Ur Specific [place] Urine Protein Urine Glucose (UA) Urine Ketones Urine Blood Urine Nitrite Urine Bilirubin Urine Urobilinogen Ur Leukocyte Esterase Urine WBC (Auto) Urine RBC (Auto) U Hyaline Cast (Auto) U Epithel Cells (Auto) Urine Bacteria (Auto) Stool Occult Bld Scrn Positive A Blood Type Blood Type Recheck Antibody Screen Crossmatch 08/17/24 08/17/24 08/17/24 03:56 06:01 07:29 WBC 10.86 H RBC 3.12 L Hgb 9.2 L Hct 28.6 L MCV 91.7 MCH 29.5 MCHC 32.2 RDW Std Deviation 43.6 RDW Coeff of Wil 13.3 Plt Count 333 MPV 9.5 Immature Gran % (Auto) 2.5 Neut % (Auto) 62.5 Lymph % (Auto) 26.2 [place] % (Auto) 6.5 Eos % (Auto) 1.9 Baso % (Auto) 0.4 Neut # (Auto) 6.78 H Lymph # (Auto) 2.85 [place] # (Auto) 0.71 H Eos # (Auto) 0.21 Baso # (Auto) 0.04 Immature Gran # (Auto) 0.27 H Absolute Nucleated RBC 0.04 Nucleated RBC % (auto) 0.4 PT INR APTT PTT Ratio Sodium Potassium Chloride Carbon Dioxide Anion Gap BUN Creatinine Est Cr Clr Drug Dosing Est GFR ( Amer) Est GFR (Non-Af Amer) BUN/Creatinine Ratio Glucose POC Glucose 115 H 125 H Calcium Magnesium Total Bilirubin AST ALT Alkaline Phosphatase Troponin I High Sens Total Protein Albumin Globulin Albumin/Globulin Ratio Urine Color Urine Appearance Urine pH Ur Specific [place] Urine Protein Urine Glucose (UA) Urine Ketones Urine Blood Urine Nitrite Urine Bilirubin Urine Urobilinogen Ur Leukocyte Esterase Urine WBC (Auto) Urine RBC (Auto) U Hyaline Cast (Auto) U Epithel Cells (Auto) Urine Bacteria (Auto) Stool Occult Bld Scrn Blood Type Blood Type Recheck Antibody Screen Crossmatch PG Care Time/CCT Total # of Minutes Spent Total Time Spent with Patient: Total time spent is greater than 50% in coordination of care (as documented) at patient's floor/unit and/or counseling patient: Coding Level of Care Code 23922 SUB INP/OBS CARE 3/50MIN Diagnoses Anemia associated with acute blood loss D62
--- NOTE | 2024-08-17 08:13 | Anesthesiology Consultation ---
Date of Service August 17, 2024 Assessment & Plan (1) Encounter for pre-operative examination: Chart Review Chart Review: Acceptable Risk for Surgery History Surgery Operation Date: 08/17/24 16:30 Proposed Procedures p Colonoscopy EGD Dr. Osvaldo Riley MD Height/Weight Height: 5 ft 6 in Weight: 108.3 kg Allergies Allergy/AdvReac Type Severity Reaction Status Date / Time Nitrate Analogues Allergy Intermediate Epistaxis Verified 03/10/24 11:42 atorvastatin AdvReac Mild Sore tongue Verified 03/10/24 11:42 finasteride AdvReac Mild Groin pain Verified 03/10/24 11:42 pravastatin AdvReac Mild Sore tongue Verified 03/10/24 11:42 tamsulosin AdvReac Mild Fatigued Verified 03/10/24 11:42 CHLOROCARBON Allergy Intermediate Eye Uncoded 03/10/24 11:42 swelling (if inhaled) Medications Home Medications Medication Instructions Recorded Confirmed Last Taken ascorbic acid (vitamin C) 500 mg 250 mg PO BID 07/11/19 08/15/24 02/16/24 tablet (Vitamin C) cholecalciferol (vitamin D3) 25 1,000 unit PO QAM 02/20/22 08/15/24 02/16/24 mcg (1,000 unit) tablet (Vitamin D3) vitamin B complex (B 0.5 tab PO QAM 09/01/23 08/15/24 02/16/24 Complex-Vitamin B12 tablet) cod liver oil 1 cap PO 2XWK 02/08/24 08/15/24 02/16/24 metformin 500 mg tablet 500 mg PO BID #180 tabs 03/02/24 08/15/24 Unknown metoprolol tartrate 50 mg tablet 50 mg PO BID #180 tabs 04/05/24 08/15/24 Unknown apixaban 5 mg tablet (Eliquis) 5 mg PO BID #180 tabs 08/05/24 08/15/24 Unknown rosuvastatin 5 mg tablet 5 mg PO HS #90 tabs 08/10/24 08/15/24 Unknown Active Medications Generic Name Dose Route Start Last Admin Trade Name Freq PRN Reason Stop Dose Admin Pantoprazole Sodium 40 mg/ 100 mls @ 20 mls/hr 08/15/24 17:15 08/17/24 03:49 Dextrose IV 09/14/24 17:14 8 mg/hr Q5H NOEMI 20 mls/hr Administration 8 MG/HR Parenteral Electrolytes 1,000 mls @ 125 mls/hr 08/15/24 18:30 08/17/24 03:49 Plasma-Lyte A Ph 7.4 IV 09/14/24 18:29 Not Given .Q8H NOEMI Insulin Aspart 0 units 08/17/24 06:15 08/17/24 06:15 Insulin Aspart Per Unit Charge SC 09/16/24 06:14 Not Given Q6 NOEMI Metoprolol Tartrate 2.5 mg 08/16/24 00:00 08/17/24 06:14 Metoprolol Tartrate 1 Mg/Ml Vial IV 09/15/24 00:00 2.5 mg Q6 NOEMI Administration Past Medical History Medical History (Updated 08/17/24 @ 08:13 by Omid Rosa MD) Anemia associated with acute blood loss Lyme disease COVID-19 virus infection Atrial fibrillation Taking Eliquis 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 Uncle Heart disease Myocardial infarction H/O hemicolectomy Grandfather (Maternal) Stroke Other Cancer No family history of adverse response to anesthesia No family history of bleeding disorder Denies family history of Ovarian cancer Prostate cancer Diabetes Breast cancer Lung cancer Past Surgical History Surgical History H/O ventral hernia repair (02/24/24) Robotic Assisted Laparoscopic Ventral Hernia Repair with Mesh and Umbilical Hernia Repair(Not Applicable) - Jostin Rothman DO, FACS History of nasal surgery (~10/2019) due to epistaxis Hx of colonoscopy with polypectomy History of cataract surgery History of surgical removal of ganglion cyst History of ear surgery perforated ear drum History of ankle surgery x3 b/l Social History Smoking Status: Former smoker tobacco type: cigarettes Smoking cigarettes per day: 1 PPD Do You Dip or Chew Tobacco: No Hx Alcohol Use: No Alcohol type: beer and wine alcohol intake frequency: holidays/special occasions only Hx Substance Use: No substance use type: does not use Physical Exam Vital Signs Last Vital Signs Temp 36.8 C 08/17/24 07:43 Pulse 76 08/17/24 07:43 Resp 18 08/17/24 07:43 BP 114/67 08/17/24 07:43 Pulse Ox 97 08/17/24 07:43 O2 Del Method Room Air 08/17/24 07:43 Testing Laboratory Results 08/17/24 03:56 08/17/24 03:46 PT 12.0 Seconds (9.0-12.0) 08/15/24 15:48 INR 1.1 (0.9-1.1) 08/15/24 15:48 APTT 23 Seconds (21-31) 08/15/24 15:48 Urine Color Yellow 08/16/24 06:22 Urine Appearance Clear (Clear) 08/16/24 06:22 Urine pH 5.0 (4.5-7.5) 08/16/24 06:22 Ur Specific [place] 1.027 (1.000-1.030) 08/16/24 06:22 Urine Protein Negative (Negative) 08/16/24 06:22 Urine Glucose (UA) Negative (Negative) 08/16/24 06:22 Urine Ketones Negative (Negative) 08/16/24 06:22 Urine Nitrite Positive (Negative) A 08/16/24 06:22 Ur Leukocyte Esterase 2+ (Negative) H 08/16/24 06:22 Urine WBC (Auto) >50 /hpf (0-5) H 08/16/24 06:22 Urine RBC (Auto) 0-2 /hpf (0-2) 08/16/24 06:22 U Hyaline Cast (Auto) 0-2 /lpf (0-2) 08/16/24 06:22 U Epithel Cells (Auto) 0-2 /hpf (0-2) 08/16/24 06:22 Urine Bacteria (Auto) 2+ (None Seen) H 08/16/24 06:22 Blood Type O Positive 08/15/24 15:52 Antibody Screen NEGATIVE 08/15/24 15:52 08/16/24 06:22 Urine Culture - Preliminary Urine,Clean Catch Gram negative bacilli 08/17/24 08/17/24 08/16/24 07:29 06:01 20:08 POC Glucose 125 H 115 H 154 H Echocardiogram Date: 09/29/23 EF: 55-60% LV Function: normal Valvular Disease: + no significant valvular disease
--- NOTE | 2024-08-17 13:55 | GI REPORT ---
[facility] Patient: JOSSIE BRASWELL : 1945 Sex at : Male Age: 79 Years Procedure: Colonoscopy Date: 08/17/2024 Attending Physician: Omid Riley MD Referring MD: Referred Self Indications: - Gastrointestinal bleeding Medications: - Monitored Anesthesia Care Complications: - No immediate complications. Procedure: - Prior to the procedure, a History and Physical was performed, and patient medications and allergies were reviewed. The patient's tolerance of previous anesthesia was also reviewed. The risks and benefits of the procedure and the sedation options and risks were discussed with the patient. All questions were answered, and informed consent was obtained. [Anticoagulant Agents] [Days Prior to Procedure]. [ASA Grade]. After reviewing the risks and benefits, the patient was deemed in satisfactory condition to undergo the procedure. - The adult colonoscope was introduced through the anus and advanced to the cecum, identified by appendiceal orifice and ileocecal valve. - The colonoscopy was performed without difficulty. - The patient tolerated the procedure well. - The quality of the bowel preparation was [Prep Quality]. - [Anatomical Structures] photographed. Findings: - Many small-mouthed diverticula were found in the sigmoid colon. - The exam was otherwise without abnormality. Impression: - Diverticulosis in the sigmoid colon. - The examination was otherwise normal. - No specimens collected. Recommendation: - Resume previous diet. - Repeat colonoscopy [day] [reason]. - Patient has a contact number available for emergencies. The signs and symptoms of potential delayed complications were discussed with the patient. Return to normal activities tomorrow. Written discharge instructions were provided to the patient. Procedure Code(s): - 84829, Colonoscopy, flexible; diagnostic, including collection of specimen(s) by brushing or washing, when performed (separate procedure) Diagnosis Code(s): - K92.2, Gastrointestinal hemorrhage, unspecified - K57.30, Diverticulosis of large intestine without perforation or abscess without bleeding CPT(R) - 2023 copyright [employer]. All Rights Reserved. The CPT codes, CCI edits and ICD codes generated are intended as suggestions and were generated based on input data. These codes are preliminary and upon asphalt distributor tender review may be revised to meet current compliance and payer requirements. The provider is responsible for the final determination of appropriate codes, and modifiers. Omid Riley MD This document has been electronically signed. Note Initiated:08/17/2024 Note Completed:08/17/2024 1:55 PM [email or web address]\Results\[email or web address]\[id number].[email or web address]
[2024-08-17 13:56] VITALS: RESP 16
--- NOTE | 2024-08-17 14:00 | GI REPORT ---
[facility] Patient: JOSSIE BRASWELL : 1945 Sex at : Male Age: 79 Years Procedure: Upper GI endoscopy Date: 08/17/2024 Attending Physician: Omid Riley MD Referring MD: Referred Self Indications: - Recent gastrointestinal bleeding Medications: - Monitored Anesthesia Care Complications: - No immediate complications. Procedure: - Prior to the procedure, a History and Physical was performed, and patient medications and allergies were reviewed. The patient's tolerance of previous anesthesia was also reviewed. The risks and benefits of the procedure and the sedation options and risks were discussed with the patient. All questions were answered, and informed consent was obtained. [Anticoagulant Agents] [Days Prior to Procedure]. [ASA Grade]. After reviewing the risks and benefits, the patient was deemed in satisfactory condition to undergo the procedure. - The egd scope was introduced through the mouth and advanced to the second part of the duodenum. - The upper GI endoscopy was accomplished without difficulty. - The patient tolerated the procedure well. Findings: - The examined esophagus was normal. - A few localized erosions with no stigmata of recent bleeding were found in the gastric antrum. Biopsies were taken with a cold forceps for Hpylori testing]. - The examined duodenum was normal. Impression: - Normal esophagus. - Gastric erosions with no stigmata of recent bleeding. Biopsied. - Normal examined duodenum. Recommendation: - Resume previous diet. - Patient has a contact number available for emergencies. The signs and symptoms of potential delayed complications were discussed with the patient. Return to normal activities tomorrow. Written discharge instructions were provided to the patient. Procedure Code(s): - 98036, Esophagogastroduodenoscopy, flexible, transoral; with biopsy, single or multiple Diagnosis Code(s): - K92.2, Gastrointestinal hemorrhage, unspecified - K25.9, Gastric ulcer, unspecified as acute or chronic, without hemorrhage or perforation CPT(R) - 2023 copyright [employer] [place] [employer]. All Rights Reserved. The CPT codes, CCI edits and ICD codes generated are intended as suggestions and were generated based on input data. These codes are preliminary and upon soliciting freight agent review may be revised to meet current compliance and payer requirements. The provider is responsible for the final determination of appropriate codes, and modifiers. Omid Riley MD This document has been electronically signed. Note Initiated:08/17/2024 Note Completed:08/17/2024 1:58 PM [email or web address]\Results\[email or web address]\[id number].pdf
--- NOTE | 2024-08-17 14:10 | Anesthesiology Progress Note ---
Date of Service August 17, 2024 Anesthesia Post Procedure Vital Signs Vital Signs: Temp Pulse Pulse Resp BP BP BP 08/17/24 14:08 72 16 168/77 H 08/17/24 13:53 36.7 C 73 16 105/53 L 08/17/24 11:50 36.7 C 95 H 18 150/75 H 08/17/24 11:14 71 08/17/24 11:13 36.7 C 75 16 118/72 08/17/24 07:43 36.8 C 76 18 114/67 08/17/24 06:20 74 08/17/24 06:14 87 129/76 08/17/24 06:08 87 129/76 08/17/24 02:45 36.7 C 73 18 115/68 08/17/24 00:46 73 118/68 08/17/24 00:32 84 127/70 08/17/24 00:20 36.8 C 84 24 129/72 08/17/24 00:00 83 08/16/24 20:34 84 102/62 08/16/24 19:25 36.6 C 75 18 100/63 08/16/24 18:01 106 H 105/81 08/16/24 16:54 91 H Pulse Ox O2 Del Method 08/17/24 14:08 99 Room Air 08/17/24 13:53 93 Room Air 08/17/24 11:50 96 Room Air 08/17/24 11:14 08/17/24 11:13 95 Room Air 08/17/24 07:43 97 Room Air 08/17/24 06:20 08/17/24 06:14 08/17/24 06:08 08/17/24 02:45 94 Room Air 08/17/24 00:46 08/17/24 00:32 08/17/24 00:20 96 Room Air 08/17/24 00:00 08/16/24 20:34 08/16/24 19:25 98 Room Air 08/16/24 18:01 08/16/24 16:54 Transfer of Care Handoff Completed per policy Notes Mental Status: alert / awake / arousable Patient Amnestic to Procedure: Yes Nausea / Vomiting: adequately controlled Pain: adequately controlled Airway Patency, RR, SpO2: stable & adequate BP & HR: stable & adequate Hydration State: stable & adequate Anesthetic Complications: no major complications apparent
[2024-08-17 14:28] VITALS: O2SAT 98
[2024-08-17 14:49] VITALS: PULSE 87; TEMP 97.5
[2024-08-17] MEDS: SODIUM CHLORIDE 0.9% 500 ML IV SCH (15:10)
[2024-08-17] MEDS: LIDOCAINE 2% 2 ML VIAL/AMP(20MG/ML) INFIL ONE (15:10)
[2024-08-17] MEDS: PROPOFOL IV EMULSION 10 MG/ML 20 ML VIAL IV ONE ×2 (15:11)
[2024-08-17 17:21] VITALS: BP 100/63
--- NOTE | 2024-08-18 21:45 | Coding Query ---
CODING QUERY To promote full compliance with coding requirements relating to patient care, provider participation is requested in all cases of clinical engineering director uncertainty. Please assist us with the question(s) below: Coding Question(s): Pt admitted for GI bleed Upper GI bleed with melena for 3-4 days, now with increased bright red blood per rectum EGD w/ Biopsy done Pathology results: Stomach, antrum biopsy: -Moderate, foca,l chronic active gastritis is seen Physician's Response(s): __x_ Upper GI bleed related to Chronic gastritis? ___Unable to determine ___Other Thank you Samreen GARCÍA
--- NOTE | 2024-08-23 06:56 | Discharge Summary ---
Discharge Summary Date of Service August 17, 2024 Principal Dx & Hospital Course #1 = Principal Diagnosis (1) UGIB (upper gastrointestinal bleed): GI bleed Upper GI bleed with melena for 3-4 days, now with increased bright red blood per rectum BP normal. HR transiently elevated with Afib RVR, converted back to NSR with mild tachycardia post MTP x2. 1L Plasma-Lyte ordered +IVFM Hemoglobin baseline approximately 15, hemoglobin on admission 12.1. BUN is acutely elevated consistent with upper GI bleed. He has no epigastric tenderness, does not use NSAIDs, is on Eliquis for A-fib prophylaxis. PPI bolus and drip ordered while patient was in the ER. gtt continued while inpatient. GI consulted. No indication for emergent endoscopy at time of assessment Last colonoscopy 2019 reviewed. This showed submucosal descending colon nodule, diverticulosis without diverticulitis, nonbleeding internal hemorrhoids at that time. Patient does have a history of colorectal cancer in an uncle. History is more consistent with upper GI bleed than lower. He reports he has never had an upper endoscopy no -Hemoglobin stable on 05/17 No transfusions needed during hospital stay. Hold eliquis until Thursday. will check hemoglobin Thursday and Thursday. EGD findings: - The examined esophagus was normal. - A few localized erosions with no stigmata of recent bleeding were found in the gastric antrum. Biopsies were taken with a cold forceps for Hpylori testing]. - The examined duodenum was normal. Impression: - Normal esophagus. - Gastric erosions with no stigmata of recent bleeding. Biopsied. - Normal examined duodenum. Recommendation: - Resume previous diet. - Patient has a contact number available for emergencies. The signs and symptoms of potential delayed complications were discussed with the patient. Return to normal activities tomorrow. Written discharge instructions were provided to the patient. Colonoscopy findings: - Many small-mouthed diverticula were found in the sigmoid colon. - The exam was otherwise without abnormality. Impression: - Diverticulosis in the sigmoid colon. - The examination was otherwise normal. - No specimens collected. Recommendation: - Resume previous diet. (2) Atrial fibrillation with rapid ventricular response: A-fib with RVR Sinus on arrival to ER, converted to A-fib RVR, converted back to sinus after 2 doses of IV metoprolol Patient is on apixaban for stroke prophylaxis, this is held for acute GI bleeding Follow on PCU No chest pain or chest pressure, high sensitive troponin is normal (3) BPH with obstruction/lower urinary tract symptoms: Bladder scan every shift (4) T2DM (type 2 diabetes mellitus): resume diet resume home meds Admission HPI Per Admitting Provider De is a 79-year-old male with a past medical history of BPH with LUTS, A- fib, type II DM, DM with mild retinopathy presents to the ER with hematochezia and A-fib RVR. Patient was in sinus on arrival, converted to A-fib while in the ER. Black bowl movements for the last 4 days. No iron supplements. In the last day they have been bright red and bloody. No clots NO chest pain, no chest pressure No dyspnea. Has been dizzy and lighthede din the last 3 days. Has not passed out. Has felt presyncopal He has no abdominal pain by report, and no abdominal pain on exam No fevers, chills, sweats, cough, UTI sx Denies NSAID use. Denies prior GI bleeds. Denies alcohol use Takes eliquis, MTP, rosuvastatin, and metformin. Did not take any medicaitons today or yesterday Past colonoscopy w/ Dr. Brooke. Last colonoscopy ~3 years ago. +polyps. +Hx of colorectal cancer in an uncle. Colon nodule, nonbleeding hemorrhoids, polyp on review of 2019 colonoscopy. Colonoscopy Hx: 2009, 2010, 2013, 2019. Medical History: Reviewed Medications: Reviewed Surgical History: Reviewed Family history: Reviewed Allergies: Reviewed. NKDA Social History: Reviewed Code Status: DNR/DNI. Discussed with patient. In the event of a cardiac or pulmonary arrest he would want to be allowed to pass would not want resuscitation. Would want full measures outside of this, although he would not want to be on a breathing machine if his condition was critical or there is an unlikely chance of recovery. Discharge Exam General: A&Ox3. NAD. Cooperative. mild pallor. HEENT: Atraumatic, normocephalic. Vision and hearing intact Pulm: CTAB A&P. -wheezes, -rales, -rhonchi. Symmetrical chest rise. No increased work of breathing. No respiratory distress. Cardiac: RRR, -mrg. Radial pulses intact and symmetrical. Abdominal: Nontender, nondistended, soft. BS present. Discharge Plan Discharge Items Patient Disposition: Home - Self-Care Reason For Visit: GIB Discharge Diagnosis: GI bleed Activity: Resume your previous activity Non-emergency contact: Primary Care Provider Call non-emergency contact if: you have any medication questions Follow-up/Referrals: Jose Hernandez DO [Primary Care Provider] - 08/25/24 11:30 am (Hospital follow up scheduled August 25 at 11:[address] Hernandez) Diet: Regular and Carb Consistent or DM2 Addtl Attending Provider Instructions: recommend followup with PCP in 1-2 weeks. recommend rechecking your blood work on Thursday and Thursday. You will hold your Eliquis until Thursday. Please take your pantoprazole twice a day. Please take the iron pills every other day. Pending Studies at Discharge: No Stand-Alone Forms: My [employer], Smoking Cessation Medications and DC Order Prescriptions: New pantoprazole 40 mg tablet,delayed release (DR/EC) 40 mg PO BID 28 Days Qty: 56 0RF ferrous sulfate 325 mg (65 mg iron) tablet 325 mg PO Q OTHER DAY Qty: 15 0RF cefdinir 300 mg capsule 300 mg PO BID Qty: 14 0RF Continued metformin 500 mg tablet 500 mg PO BID Qty: 180 3RF metoprolol tartrate 50 mg tablet 50 mg PO BID Qty: 180 3RF rosuvastatin 5 mg tablet 5 mg PO HS Qty: 90 1RF Held Eliquis 5 mg tablet 5 mg PO BID Qty: 180 2RF Hold Instructions: Resume on 08/21/24. No Action vitamin B complex [B Complex-Vitamin B12] Tablet 0.5 tab PO QAM Rx Instructions: 08/19/24-Per she is not giving at this time ascorbic acid (vitamin C) [Vitamin C] 500 mg tablet 250 mg PO BID Rx Instructions: 08/19/24-Per she is not giving at this time cholecalciferol (vitamin D3) [Vitamin D3] 25 mcg (1,000 unit) tablet 1,000 unit PO QAM Rx Instructions: 08/19/24-Per she is not giving at this time cod liver oil Capsule 1 cap PO 2XWK Rx Instructions: 08/19/24-Per she is not giving at this time Discharge Orders: Discharge Order (Routine); Ordered 08/17/24 Ordered By: Alli Ann Admission Data Admit Date/Time: 08/15/24 19:20 Attending Provider: Alli Ann Admit Provider: Tiburcio Bailey Primary Care Provider: Jose Hernandez Other Providers: Tiburcio Bailey; Barrett Overton Jr Other Interventions: Discharge Summary Assessment (RN) Last Done: 08/17/24 17:18 Hospital Stay Data Consultations 08/15/24 16:46 ED Decision to Admit Stat 08/15/24 18:26 Consult Gastroenterology Routine Procedures Performed Operation Date: 08/17/24 16:30 Actual Procedures p EGD Biopsy Cytology - Omid Riley MD s Colonoscopy - Omid Riley MD Pending Results Patient Have Any Pending Studies at Discharge: No Discharge Instructions Given to Patient (Per Discharging Provider) recommend followup with PCP in 1-2 weeks. recommend rechecking your blood work on Thursday and Thursday. You will hold your Eliquis until Thursday. Please take your pantoprazole twice a day. Please take the iron pills every other day. Total Time Total Time Spent Total Time Spent (In Minutes): 32 Coding Level of Care Code 74615 INP/OBS DISCH >30 MIN Diagnoses UGIB (upper gastrointestinal bleed) K92.2 Atrial fibrillation with rapid ventricular response I48.91 BPH with obstruction/lower urinary tract symptoms N40.1; N13.8 T2DM (type 2 diabetes mellitus) E11.9
== END 2024-08-17 17:22 | disposition home or self-care (01) | DRG 378 ==
LOC: ED 14:40 → EDINP 19:20 → SUATTDRO 19:20 → 2S 08-16 00:31
DX: Z66 Do not resuscitate; E11.319 Type 2 diabetes mellitus with unspecified diabetic retinopathy without macular edema; Z88.3 Allergy status to other anti-infective agents; E66.9 Obesity, unspecified; Z97.4 Presence of external hearing-aid; Z88.8 Allergy status to other drugs, medicaments and biological substances; K29.51 Unspecified chronic gastritis with bleeding; Z79.899 Other long term (current) drug therapy; E78.5 Hyperlipidemia, unspecified; Z86.16 Personal history of COVID-19; Z79.01 Long term (current) use of anticoagulants; Z79.84 Long term (current) use of oral hypoglycemic drugs; Z87.891 Personal history of nicotine dependence; N40.1 Benign prostatic hyperplasia with lower urinary tract symptoms; D62 Acute posthemorrhagic anemia; I48.91 Unspecified atrial fibrillation; N13.8 Other obstructive and reflux uropathy; Z68.38 Body mass index [BMI] 38.0-38.9, adult; I48.92 Unspecified atrial flutter